=== PATIENT | female | born 1930 | race Caucasian/White ===

== ENCOUNTER → 2016-05-15 | Outpatient (CLI) | payer OTHER | END | disposition home or self-care (01) | LOC: C.LABSPEC 18:01 | PROVIDERS: ATTEND Family Medicine | DX: R31.9 Hematuria, unspecified (principal) ==

== ENCOUNTER 2017-05-07 09:26 | Emergency (ER) | payer OTHER ==
[~2017-05-07] VITALS: Ht 154.9 cm; Wt 49.0 kg
[2017-05-07 09:28] VITALS: TEMP 36.4; Ht 154.9 cm; Wt 49.0 kg
[2017-05-07 09:46] VITALS: O2SAT 95
--- NOTE | 2017-05-07 09:48 | EMERGENCY ROOM VISIT NOTE ---
History Report prepared by Keli: Paulie Sorto Under the Supervision of: Dr. Jeremiah Appiah D.O. First contact with patient: 09:31 Stated Complaint: LETHARGY History of Present Illness The patient is a 87 year old female who presents to the Emergency Room with complaints of persistent increased lethargy starting this morning. Per the nursing staff, the patient was found sitting in her chair this morning more diaphoretic than usual, and she was bradycardic in the 50s. The patient states that she is had some abdominal pain, and she notes that she has not felt sick recently. The patient has a history of dementia. Source of History: patient, nursing staff Onset: this morning Position: other (global) Quality: other (lethargy) Timing: other (persistent) Associated Symptoms: + diaphoresis, + abdominal pain Review of Systems See HPI for pertinent positives & negatives. A total of 10 systems reviewed and were otherwise negative. Past Medical & Surgical Medical Problems: (1) Dementia Social History Marital Status: other (unknown) Housing Status: assisted living Occupation Status: retired Current/Historical Medications Scheduled Cephalexin Monohydrate (Keflex), 500 MG PO QID Cyanocobalamin (Cyanocobalamin), 1 ML IM MONTHLY Diltiazem Hcl Ext Rel (Tiazac), 0.5 CAP PO DAILY Ergocalciferol (Vitamin D 33824 Unit), 50,000 UNIT PO Q2WK Ferrous Sulfate (Kp Ferrous Sulfate), 1 TAB PO DAILY Isosorbide Mononitrate Ext Rel (Imdur Ext Rel), 60 MG PO QAM Levothyroxine Sodium (Levothyroxine Sodium), 1 TAB PO DAILY Metoprolol Tartrate (Lopressor) (Lopressor), 50 MG PO BID Polyethylene Glycol 3350 (Miralax), 17 GM PO DAILY Ranitidine (Zantac), 150 MG PO BID Scheduled PRN Acetaminophen (Tylenol), 1-2 TAB PO Q4H PRN for Pain Acetaminophen (Tylenol Arthritis Ext Rel), 650 MG PO Q8H PRN for Pain Allergies Coded Allergies: Valacyclovir (Unverified Allergy, Severe, ANAPHYLAXIS, 05/07/17) Clopidogrel (Unverified Allergy, Unknown, COUGH, 05/07/17) Amlodipine (Unverified Adverse Reaction, Unknown, COUGH, 05/07/17) Atorvastatin (Unverified Adverse Reaction, Unknown, COUGH, 05/07/17) Hydrochlorothiazide (Unverified Adverse Reaction, Unknown, COUGH, 05/07/17) Lisinopril (Unverified Adverse Reaction, Unknown, COUGH, 05/07/17) Simvastatin (Unverified Adverse Reaction, Unknown, COUGH, 05/07/17) Physical Exam Vital Signs Date Time Temp Pulse Resp B/P (MAP) Pulse Ox O2 Delivery O2 Flow Rate FiO2 05/07/17 15:01 68 20 173/57 98 Room Air 05/07/17 14:00 63 20 144/53 94 Room Air 05/07/17 13:30 61 20 155/60 95 Room Air 05/07/17 12:30 68 20 159/68 95 Room Air 05/07/17 11:30 62 20 168/81 94 Room Air 05/07/17 10:36 58 20 150/70 94 Room Air 05/07/17 09:46 95 Room Air 05/07/17 09:42 70 05/07/17 09:28 36.4 55 20 146/65 95 Room Air Physical Exam GENERAL: Patient is awake, alert, non-anxious appearing, and does not appear to be in pain. EYES: The conjunctivae are clear. The pupils are round and reactive. EARS, NOSE, MOUTH AND THROAT: The nose is without any evidence of any deformity. Mucous membranes are moist tongue is midline NECK: The neck is nontender and supple. RESPIRATORY: Lung sounds diminished throughout. Rales in the left lung field. No tachypnea or conversational dyspnea. CARDIOVASCULAR: Regular rate and rhythm noted there no murmurs rubs or gallops normal S1 normal S2 GASTROINTESTINAL: The abdomen is mildly distended but soft. No tenderness, guarding or rigidity. PELVIS: The Pelvis is stable. No tenderness to palpation is noted. BACK: No midline tenderness or or step-off noted range of motion in flexion extension as well as rotation no signs of muscle spasm noted MUSCULOSKELETAL/EXTREMITIES: There is no evidence of gross deformity full range of motion is noted in the hips and shoulders SKIN: There is pedal edema bilaterally. There is no obvious evidence of any rash. There are no petechiae, pallor or cyanosis noted. NEUROLOGIC: Patient is awake and oriented to person and place but not time or situation. Medical Decision & Procedures ER Provider Diagnostic Interpretation: Radiology results as stated below per my review and radiologist interpretation: HEAD CT NONCONTRAST CT DOSE: 815.01 mGy.cm HISTORY: Altered mental status. TECHNIQUE: Multiaxial CT images of the head were performed without the use of intravenous contrast. Automated exposure control was utilized for this study. A dose lowering technique was utilized adhering to the principles of ALARA. Comparison: None. Findings: Mild mucosal thickening within the left anterior ethmoid air cells. The mastoid air cells are clear. The calvarium and skull base are intact. There is no mass, hematoma, midline shift, acute infarct. White matter hypodensity is nonspecific but suggestive of microvascular ischemic change. The ventricles and sulci demonstrate mild age-related involutional changes. 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 Impression: No acute intracranial abnormality. Atrophy and microvascular ischemic changes. Electronically signed by: John Gonzales M.D. 05/07/2017 10:32 AM Dictated Date/Time: 05/07/2017 10:21 AM CHEST ONE VIEW PORTABLE CLINICAL HISTORY: Pain, radiating to the abdomen. COMPARISON STUDY: No previous studies for comparison. FINDINGS: The heart is mildly enlarged. There are a few equivocal septal lines. There is no focal pulmonary consolidation. There are no significant pleural effusions. There is no free intraperitoneal air.[ IMPRESSION: 1. Cardiomegaly 2. No evidence of focal pulmonary consolidation 3. No evidence of free intraperitoneal air Electronically signed by: Landon Ching M.D. 05/07/2017 10:02 AM Dictated Date/Time: 05/07/2017 10:[address] SCAN OF THE ABDOMEN AND PELVIS WITHOUT CONTRAST CLINICAL HISTORY: Diffuse abdominal pain with abdominal distention COMPARISON STUDY: No previous studies for comparison. TECHNIQUE: CT scan of the abdomen and pelvis was performed from the lung bases to the proximal femurs. Images are reviewed in the axial, sagittal, and coronal planes. IV contrast was not administered for this examination. A dose lowering technique was utilized adhering to the principles of ALARA. CT DOSE: FINDINGS: Lower chest: There are by basilar atelectatic changes. There is a prominent hiatal hernia. The heart is enlarged. Liver: The unenhanced liver is normal in size, contour, and attenuation. There is no intrahepatic biliary ductal dilatation. Gallbladder: There is a large calcified gallstone. Spleen: Normal in size and attenuation. Pancreas: Unremarkable. Adrenal glands: Unremarkable. Kidneys: There is no hydronephrosis. The kidneys are lobular. There is a 12 mm right renal mass likely representing a cyst Bowel: There are no transition zones to indicate bowel obstruction. There is colonic diverticulosis. There are no acute peridiverticular inflammatory changes. There is a lipomatous ileocecal valve. There is colonic wall thickening most pronounced the level of the hepatic flexure. The findings are consistent with a nonspecific colitis. Peritoneum: There is no intraperitoneal free air or abdominal ascites. Vasculature: Atheromatous changes are present within the abdominal aorta. There is no aneurysmal dilatation. Adenopathy: None. Pelvic viscera: The uterus is surgically absent. Skeletal structures: No destructive osseous lesions are seen. IMPRESSION: 1. No evidence of bowel obstruction. No evidence of free air 2. Diverticulosis. No evidence of acute diverticulitis 3. Cholelithiasis 4. Colonic wall thickening involving the ascending and proximal transverse colon. The findings are consistent with a nonspecific colitis (infectious versus inflammatory versus ischemic) Electronically signed by: Landon Ching M.D. 05/07/2017 10:27 AM Dictated Date/Time: 05/07/2017 10:22 AM Laboratory Results 05/07/17 09:50 Red Blood Count 3.70, Mean Corpuscular Volume 92.2, Mean Corpuscular Hemoglobin 30.8, Mean Corpuscular Hemoglobin Concent 33.4, Mean Platelet Volume 9.8, Neutrophils (%) (Auto) 67.5, Lymphocytes (%) (Auto) 13.7, Monocytes (%) (Auto) 13.6, Eosinophils (%) (Auto) 4.8, Basophils (%) (Auto) 0.3, Neutrophils # (Auto ) 4.88, Lymphocytes # (Auto) 0.99, Monocytes # (Auto) 0.98, Eosinophils # (Auto ) 0.35, Basophils # (Auto) 0.02 05/07/17 09:50 Test 05/07/17 00:00 05/07/17 09:50 Urine Color YELLOW Urine Appearance CLOUDY (CLEAR) Urine pH 6.0 (4.5-7.5) Urine Specific [place] 1.014 (1.000-1.030) Urine Protein NEG (NEG) Urine Glucose (UA) NEG (NEG) Urine Ketones NEG (NEG) Urine Occult Blood NEG (NEG) Urine Nitrite NEG (NEG) Urine Bilirubin NEG (NEG) Urine Urobilinogen NEG (NEG) Urine Leukocyte Esterase LARGE (NEG) Urine WBC (Auto) >30 /hpf (0-5) Urine RBC (Auto) 0-4 /hpf (0-4) Urine Hyaline Casts (Auto) 1-5 /lpf (0-5) Urine Epithelial Cells (Auto) >30 /lpf (0-5) Urine Bacteria (Auto) 2+ (NEG) White Blood Count 7.23 K/uL (4.8-10.8) Red Blood Count 3.70 M/uL (4.2-5.4) Hemoglobin 11.4 g/dL (12.0-16.0) Hematocrit 34.1 % (37-47) Mean Corpuscular Volume 92.2 fL (80-100) Mean Corpuscular Hemoglobin 30.8 pg (25-34) Mean Corpuscular Hemoglobin Concent 33.4 g/dl (32-36) Platelet Count 137 K/uL (130-400) Mean Platelet Volume 9.8 fL (7.4-10.4) Neutrophils (%) (Auto) 67.5 % Lymphocytes (%) (Auto) 13.7 % Monocytes (%) (Auto) 13.6 % Eosinophils (%) (Auto) 4.8 % Basophils (%) (Auto) 0.3 % Neutrophils # (Auto) 4.88 K/uL (1.4-6.5) Lymphocytes # (Auto) 0.99 K/uL (1.2-3.4) Monocytes # (Auto) 0.98 K/uL (0.11-0.59) Eosinophils # (Auto) 0.35 K/uL (0-0.5) Basophils # (Auto) 0.02 K/uL (0-0.2) RDW Standard Deviation 44.1 fL (36.4-46.3) RDW Coefficient of Variation 13.1 % (11.5-14.5) Immature Granulocyte % (Auto) 0.1 % Immature Granulocyte # (Auto) 0.01 K/uL (0.00-0.02) Prothrombin Time 10.6 SECONDS (9.0-12.0) Prothromb Time International Ratio 1.0 (0.9-1.1) Activated Partial Thromboplast Time 24.0 SECONDS (21.0-31.0) Partial Thromboplastin Ratio 0.9 Anion Gap 6.0 mmol/L (3-11) Est Creatinine Clear Calc Drug Dose 18.3 ml/min Estimated GFR () 33.5 Estimated GFR (Non- 28.9 BUN/Creatinine Ratio 15.5 (10-20) Calcium Level 8.8 mg/dl (8.5-10.1) Total Bilirubin 0.5 mg/dl (0.2-1) Direct Bilirubin 0.1 mg/dl (0-0.2) Aspartate Amino Transf (AST/SGOT) 19 U/L (15-37) Alanine Aminotransferase (ALT/SGPT) 17 U/L (12-78) Alkaline Phosphatase 63 U/L (45-117) Total Creatine Kinase 67 U/L (26-192) Creatine Kinase MB 2.2 ng/ml (0.5-3.6) Creatine Kinase MB Ratio 3.3 (0-3.0) Troponin I < 0.015 ng/ml (0-0.045) Total Protein 6.4 gm/dl (6.4-8.2) Albumin 3.4 gm/dl (3.4-5.0) Lipase 419 U/L (73-393) Laboratory results per my review. Medications Administered Medications (Trade) Dose Ordered Sig/Cheryle Route Start Time Stop Time Status Last Admin Dose Admin Ceftriaxone Sodium (Rocephin Inj) 1 gm NOW STAT IV 05/07/17 11:02 05/07/17 11:03 DC 05/07/17 11:14 1 GM ECG Indication: weakness Rate (beats per minute): 52 Rhythm: sinus bradycardia Findings: 1st degree AV block, no ectopy, other (LVH by voltage criteria) Comparison ECG Date: no prior available ED Course 0931: The patient was evaluated in room A11. A complete history and physical examination were performed. 1000: I reevaluated the patient, and I talked with her daughter as well. 1102: Rocephin 1gm IV 1252: Upon reevaluation, the patient is doing well. I discussed the results and treatment plan with her and her daughter. They verbalized agreement of the treatment plan. She was discharged home. Medical Decision Differential diagnosis: Etiologies such as metabolic, infection, hypo/hyperglycemia, electrolyte abnormalities, cardiac sources, intracerebral event, toxicologic, neurologic, as well as others were entertained. Nursing notes reviewed. Additional history is obtained from the patient's family member. The patient is an 87-year-old female who presented to the emergency department from her personal alf for an evaluation. The patient's presentation was somewhat confusing. She had some sort of episode at her personal alf where she appeared to be altered in her mental status. She was also reportedly diaphoretic. The patient appeared to be at her baseline according to her daughter. She did have a shuffling gait and appeared overall week. I discussed patient's laboratory and radiographic studies with her daughter. The patient was treated with IV antibiotics for presumed urinary tract infection. I recommended that they continue all medications as prescribed. I discussed the case with the emergency Department disease case manager rn. They were able to call the patient's personal alf to ensure that they were able to care for her and she was discharged back to that facility at a higher level of care. She was encouraged to return to the emergency department immediately if symptoms change worsen or the need arises. Medication Reconcilliation Current Medication List: was personally reviewed by me Blood Pressure Screening Patient's blood pressure: Elevated blood pressure Blood pressure disposition: Elevated BP felt to be situational Impression Primary Impression: Weakness Additional Impression: UTI (urinary tract infection) Scribe Attestation The scribe's documentation has been prepared under my direction and personally reviewed by me in its entirety. I confirm that the note above accurately reflects all work, treatment, procedures, and medical decision making performed by me. Departure Information Dispostion Home / Self-Care Prescriptions Cephalexin Monohydrate (KEFLEX) 500 Mg Cap 500 MG PO QID, #28 CAP Prov: Jeremiah Appiah, 05/07/17 Referrals No Doctor, Assigned (PCP) Forms HOME CARE DOCUMENTATION FORM, IMPORTANT VISIT INFORMATION, WORK / SCHOOL INSTRUCTIONS Patient Instructions ED Weakness ALFONZO, My [facility], Urinary Tract Infecs Women Additional Instructions Continue all medications as prescribed. Follow-up with your family this week for reevaluation. Return to the emergency department immediately if symptoms change worsen or need arises. Problem Qualifiers Additional Impression: UTI (urinary tract infection) Urinary tract infection type: site unspecified Hematuria presence: without hematuria Qualified Codes: N39.0 - Urinary tract infection, site not specified
--- NOTE | 2017-05-07 10:04 | DIAGNOSTIC IMAGING REPORT ---
CHEST ONE VIEW PORTABLE CLINICAL HISTORY: Pain, radiating to the abdomen. COMPARISON STUDY: No previous studies for comparison. FINDINGS: The heart is mildly enlarged. There are a few equivocal septal lines. There is no focal pulmonary consolidation. There are no significant pleural effusions. There is no free intraperitoneal air.[ IMPRESSION: 1. Cardiomegaly 2. No evidence of focal pulmonary consolidation 3. No evidence of free intraperitoneal air Electronically signed by: Landon Ching M.D. 05/07/2017 10:02 AM Dictated Date/Time: 05/07/2017 10:02 AM
[2017-05-07 10:11] LABS: BASO % 0.3 %; BASO ABS # 0.02 K/uL (0-0.2); EOS % 4.8 %; EOS ABS # 0.35 K/uL (0-0.5); HEMATOCRIT 34.1 % (37-47); HEMOGLOBIN 11.4 g/dL (12.0-16.0); IG# 0.01 K/uL (0.00-0.02); LYMPH % 13.7 %; LYMPH ABS # 0.99 K/uL (1.2-3.4); MEAN CELL VOLUME 92.2 fL (80-100); MEAN CORPUSCULAR HEMOGLOBIN 30.8 pg (25-34); MEAN CORPUSCULAR HGB CONC 33.4 g/dl (32-36); MEAN PLATELET VOLUME 9.8 fL (7.4-10.4); MONO % 13.6 %; MONO ABS # 0.98 K/uL (0.11-0.59); NEUT % 67.5 %; NEUT ABS # 4.88 K/uL (1.4-6.5); PLATELET COUNT 137 K/uL (130-400); RED CELL DISTRIBUTION WIDTH CV 13.1 % (11.5-14.5); RED CELL DISTRIBUTION WIDTH SD 44.1 fL (36.4-46.3); WHITE BLOOD COUNT 7.23 K/uL (4.8-10.8)
[2017-05-07] MEDS ORDERED: ACET1TAB84 PO (10:16)
[2017-05-07] MEDS ORDERED: LEVO50TA6 PO (10:16)
[2017-05-07] MEDS ORDERED: METO50TA16 PO (10:16)
[2017-05-07] MEDS ORDERED: CYNI1000 IM (10:16)
[2017-05-07] MEDS ORDERED: ZNTT/150 PO (10:16)
[2017-05-07] MEDS ORDERED: ACET-1311 PO (10:16)
[2017-05-07] MEDS ORDERED: ERGO500037 PO (10:16)
[2017-05-07] MEDS ORDERED: FERR1TAB13 PO (10:16)
[2017-05-07] MEDS ORDERED: DILT120C68 PO (10:16)
[2017-05-07] MEDS ORDERED: POLY335019 PO (10:16)
[2017-05-07] MEDS ORDERED: ISOS60TA25 PO (10:16)
[2017-05-07 10:30] LABS: ALBUMIN 3.4 gm/dl (3.4-5.0); ALT/SGPT 17 U/L (12-78); AST/SGOT 19 U/L (15-37); BLOOD UREA NITROGEN 24 mg/dl (7-18); CALCIUM 8.8 mg/dl (8.5-10.1); CARBON DIOXIDE 27 mmol/L (21-32); CREATININE 1.57 mg/dl (0.60-1.20); GLUCOSE 107 mg/dl (70-99); LIPASE 419 U/L (73-393); POTASSIUM 3.9 mmol/L (3.5-5.1); SODIUM 130 mmol/L (136-145)
[2017-05-07 10:36] LABS: ALKALINE PHOSPHATASE 63 U/L (45-117); CKMB 2.2 ng/ml (0.5-3.6); TOTAL PROTEIN 6.4 gm/dl (6.4-8.2)
--- NOTE | 2017-05-07 10:44 | DIAGNOSTIC IMAGING REPORT ---
CT SCAN OF THE ABDOMEN AND PELVIS WITHOUT CONTRAST CLINICAL HISTORY: Diffuse abdominal pain with abdominal distention COMPARISON STUDY: No previous studies for comparison. TECHNIQUE: CT scan of the abdomen and pelvis was performed from the lung bases to the proximal femurs. Images are reviewed in the axial, sagittal, and coronal planes. IV contrast was not administered for this examination. A dose lowering technique was utilized adhering to the principles of ALARA. CT DOSE: FINDINGS: Lower chest: There are by basilar atelectatic changes. There is a prominent hiatal hernia. The heart is enlarged. Liver: The unenhanced liver is normal in size, contour, and attenuation. There is no intrahepatic biliary ductal dilatation. Gallbladder: There is a large calcified gallstone. Spleen: Normal in size and attenuation. Pancreas: Unremarkable. Adrenal glands: Unremarkable. Kidneys: There is no hydronephrosis. The kidneys are lobular. There is a 12 mm right renal mass likely representing a cyst Bowel: There are no transition zones to indicate bowel obstruction. There is colonic diverticulosis. There are no acute peridiverticular inflammatory changes. There is a lipomatous ileocecal valve. There is colonic wall thickening most pronounced the level of the hepatic flexure. The findings are consistent with a nonspecific colitis. Peritoneum: There is no intraperitoneal free air or abdominal ascites. Vasculature: Atheromatous changes are present within the abdominal aorta. There is no aneurysmal dilatation. Adenopathy: None. Pelvic viscera: The uterus is surgically absent. Skeletal structures: No destructive osseous lesions are seen. IMPRESSION: 1. No evidence of bowel obstruction. No evidence of free air 2. Diverticulosis. No evidence of acute diverticulitis 3. Cholelithiasis 4. Colonic wall thickening involving the ascending and proximal transverse colon. The findings are consistent with a nonspecific colitis (infectious versus inflammatory versus ischemic) Electronically signed by: Landon Ching M.D. 05/07/2017 10:27 AM Dictated Date/Time: 05/07/2017 10:22 AM
--- NOTE | 2017-05-07 10:44 | DIAGNOSTIC IMAGING REPORT ---
HEAD CT NONCONTRAST CT DOSE: 815.01 mGy.cm HISTORY: Altered mental status. TECHNIQUE: Multiaxial CT images of the head were performed without the use of intravenous contrast. Automated exposure control was utilized for this study. A dose lowering technique was utilized adhering to the principles of ALARA. Comparison: None. Findings: Mild mucosal thickening within the left anterior ethmoid air cells. The mastoid air cells are clear. The calvarium and skull base are intact. There is no mass, hematoma, midline shift, acute infarct. White matter hypodensity is nonspecific but suggestive of microvascular ischemic change. The ventricles and sulci demonstrate mild age-related involutional changes. 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 Impression: No acute intracranial abnormality. Atrophy and microvascular ischemic changes. Electronically signed by: John Gonzales M.D. 05/07/2017 10:32 AM Dictated Date/Time: 05/07/2017 10:21 AM
[2017-05-07] MEDS ORDERED: CEFTRIAXONE SOD INJ 1 GM ADDVIAL IV STA (11:02)
[2017-05-07] MEDS ORDERED: CEPH500C2 PO (13:12)
[2017-05-07 15:01] VITALS: BP 173/57; PULSE 68; O2SAT 98
== END 2017-05-07 15:10 | disposition home or self-care (01) ==
LOC: EDBD 09:26 → C.EDA 09:29
DX: R53.1 Weakness (principal); N39.0 Urinary tract infection, site not specified; R03.0 Elevated blood-pressure reading, without diagnosis of hypertension; R00.1 Bradycardia, unspecified; R61 Generalized hyperhidrosis; F03.90 Unspecified dementia, unspecified severity, without behavioral disturbance, psychotic disturbance, mood disturbance, and anxiety

== ENCOUNTER 2017-08-02 10:42 | Emergency (ER) | payer OTHER ==
[~2017-08-02] VITALS: Ht 152.4 cm; Wt 45.0 kg
[~2017-08-02 10:42] MED LIST: ACET-1311 PO; ACET1TAB84 PO; CEPH500C2 PO; CYNI1000 IM; DILT120C68 PO; ERGO500037 PO; FERR1TAB13 PO; ISOS60TA25 PO; LEVO50TA6 PO; METO50TA16 PO; POLY335019 PO; RANI150T85 PO
[2017-08-02 10:51] VITALS: TEMP 36.8; Ht 152.4 cm; Wt 45.0 kg
[2017-08-02 10:57] VITALS: O2SAT 94
[2017-08-02] MEDS ORDERED: [UNRECOGNIZED DRUG - CODE] TOP (10:58)
[2017-08-02] MEDS ORDERED: DICL1GEL12 TD (11:00)
[2017-08-02] MEDS ORDERED: LIDO1CRE16 TOP (11:00)
[2017-08-02] MEDS ORDERED: NUTR-706 PO (11:05)
[2017-08-02] MEDS ORDERED: FURO-85 PO (11:08)
[2017-08-02] MEDS ORDERED: TRAM-10 PO (11:12)
[2017-08-02] MEDS ORDERED: CYAN100020 PO (11:12)
[2017-08-02] MEDS ORDERED: CHOL2000 PO (11:13)
[2017-08-02 11:30] LABS: BASO % 0.2 %; BASO ABS # 0.01 K/uL (0-0.2); EOS % 3.6 %; EOS ABS # 0.24 K/uL (0-0.5); HEMOGLOBIN 11.8 g/dL (12.0-16.0); IG# 0.01 K/uL (0.00-0.02); LYMPH % 18.2 %; LYMPH ABS # 1.21 K/uL (1.2-3.4); MEAN CELL VOLUME 92.6 fL (80-100); MEAN CORPUSCULAR HEMOGLOBIN 31.2 pg (25-34); MEAN CORPUSCULAR HGB CONC 33.7 g/dl (32-36); MEAN PLATELET VOLUME 9.9 fL (7.4-10.4); MONO % 9.3 %; MONO ABS # 0.62 K/uL (0.11-0.59); NEUT % 68.5 %; NEUT ABS # 4.57 K/uL (1.4-6.5); PLATELET COUNT 162 K/uL (130-400); RED CELL DISTRIBUTION WIDTH CV 12.6 % (11.5-14.5); RED CELL DISTRIBUTION WIDTH SD 43.1 fL (36.4-46.3); WHITE BLOOD COUNT 6.66 K/uL (4.8-10.8)
[2017-08-02 11:47] LABS: BLOOD UREA NITROGEN 25 mg/dl (7-18); CALCIUM 9.2 mg/dl (8.5-10.1); CARBON DIOXIDE 29 mmol/L (21-32); CREATININE 1.51 mg/dl (0.60-1.20); GLUCOSE 127 mg/dl (70-99); POTASSIUM 4.3 mmol/L (3.5-5.1); SODIUM 135 mmol/L (136-145)
--- NOTE | 2017-08-02 11:48 | DIAGNOSTIC IMAGING REPORT ---
CT HEAD WITHOUT CONTRAST (CT) CLINICAL HISTORY: Head trauma. Scalp hematoma. COMPARISON STUDY: May 07, 2017 TECHNIQUE: Axial CT of the brain is performed from the vertex to the skull base. IV contrast was not administered for this examination. A dose lowering technique was utilized adhering to the principles of ALARA. CT DOSE: 537.48 mGy.cm FINDINGS: No intra or extra-axial mass lesions are visualized. There is no CT evidence of acute cortical infarction. There is no evidence of midline shift. There is no acute hemorrhage. No calvarial fractures are visualized. There are patchy white matter hypodensities likely on a small vessel basis. There is an old small left parietal lobe infarct. There is no evidence of pathologic ventricular dilatation. There is no evidence of acute sinusitis. There is a right posterior scalp hematoma. IMPRESSION: Right posterior parietal scalp hematoma. No acute intracranial findings. Electronically signed by: Landon Ching M.D. 08/02/2017 11:47 AM Dictated Date/Time: 08/02/2017 11:45 AM
[2017-08-02 11:52] LABS: CKMB 1.6 ng/ml (0.5-3.6)
--- NOTE | 2017-08-02 12:15 | EMERGENCY ROOM VISIT NOTE ---
ED Visit Note First contact with patient: 10:48 The patient was seen and examined with John Del Toro PA-C. I agree with the history, physical and findings. Please see the note for disposition and details.
[2017-08-02 13:02] VITALS: BP 187/71; PULSE 74; O2SAT 95
--- NOTE | 2017-08-07 17:24 | EMERGENCY ROOM VISIT NOTE ---
History First contact with patient: 10:48 Chief Complaint: FALL Stated Complaint: FALL/ HEMATOMA History of Present Illness The patient is a 87 year old white female who presents to the Emergency Room with complaints of a bump on her posterior head. Patient resides at the dementia unit at the [facility]. She had an unwitnessed fall. Her only complaint is of a bump on the back of her head. There was no loss of consciousness as far as I am aware. Patient is demented and is an unreliable historian. She denies any chest pain, shortness breath, nausea, vomiting, headache, or change in vision, speech, or hearing. No hip pain. She arrives by BLS ambulance. No other complaints. Review of Systems REVIEW OF SYSTEM: HEENT: No dizziness, visual problems, or tinnitus. There is no difficulty swallowing and no oral lesions are present. LYMPH: No adenopathy. PULMONARY: No cough, shortness of breath, sputum production or hemoptysis. CARDIOVASCULAR: No chest pain, palpitations, shortness of breath or peripheral edema. GASTROINTESTINAL: No diarrhea, constipation, nausea, vomiting, or abdominal pain. GENITOURINARY: No dysuria, frequency, urgency or nocturia. NEUROLOGIC: No weakness, muscle tenderness, epilepsy or history of neurological problems. MUSCULOSKELETAL: No history of joint tenderness/swelling. Positive history of arthritis and arthralgias. SKIN: No rashes or lesions. PSYCHIATRIC: Positive history of dementia. ENDOCRINE: No history of diabetes, or abnormal hair growth. Past Medical/Surgical History Medical Problems: (1) Dementia Hypertension, heart disease, hypothyroidism, GERD, osteoarthritis. Family History Noncontributory. Parents are . Social History Smoking Status: Never Smoker Smokeless Tobacco Use: No Alcohol Use: none Drug Use: none Marital Status: other Housing Status: assisted living Occupation Status: retired Current/Historical Medications Scheduled Cholecalciferol (Vitamin D3), 1 CAP PO DAILY Cyanocobalamin (Vitamin B12), 1 TAB PO DAILY Diltiazem Hcl Ext Rel (Tiazac), 0.5 CAP PO DAILY Enteral Nutrition Formula (Ensure), 1 CAN PO BID Isosorbide Mononitrate Ext Rel (Imdur Ext Rel), 60 MG PO QAM Levothyroxine Sodium (Levothyroxine Sodium), 1 TAB PO DAILY Metoprolol Tartrate (Lopressor) (Lopressor), 50 MG PO BID Ranitidine (Zantac), 150 MG PO BID Scheduled PRN Acetaminophen (Tylenol), 1-2 TAB PO Q4H PRN for Pain Acetaminophen (Tylenol Arthritis Ext Rel), 650 MG PO Q8H PRN for Pain Diclofenac Sodium (Topical) (Voltaren 1% Top Gel), 4 GM TD QID PRN for lumbar pain Docosanol (Abreva), 1 APPLN TOP UD PRN for cold sores Furosemide (Lasix), 1 TAB PO DAILY PRN for edema Lidocaine-Prilocaine (Lidocaine/Prilocaine), 1 APPLN TOP UD PRN for Lumbar pain Tramadol (Ultram), 25-50 MG PO Q4H PRN for Pain Allergies Coded Allergies: Valacyclovir (Unverified Allergy, Severe, ANAPHYLAXIS, 08/02/17) Clopidogrel (Unverified Allergy, Unknown, COUGH, 08/02/17) Amlodipine (Unverified Adverse Reaction, Unknown, COUGH, 08/02/17) Atorvastatin (Unverified Adverse Reaction, Unknown, COUGH, 08/02/17) Hydrochlorothiazide (Unverified Adverse Reaction, Unknown, COUGH, 08/02/17) Lisinopril (Unverified Adverse Reaction, Unknown, COUGH, 08/02/17) Simvastatin (Unverified Adverse Reaction, Unknown, COUGH, 08/02/17) Physical Exam Vital Signs Date Time Temp Pulse Resp B/P (MAP) Pulse Ox O2 Delivery O2 Flow Rate FiO2 08/02/17 13:02 74 187/71 95 08/02/17 12:00 56 18 177/92 96 Room Air 08/02/17 11:29 59 18 175/72 96 Room Air 08/02/17 11:13 62 08/02/17 10:57 94 Room Air 08/02/17 10:51 36.8 69 18 203/74 94 Room Air Physical Exam General: Well-developed, well-nourished, elderly white female, in no acute distress. Laying on the bed. Alert and pleasantly confused. Skin: Warm and dry with fair turgor. No rashes. No ecchymosis or erythema. She has an edematous area on her posterior scalp. It is approximately 4 cm in diameter. No laceration. There is nothing to close. The area is tender to touch. The patient is not diaphoretic. No abrasions. HEENT: Normocephalic. Eyes PERRLA, EOMI. No conjunctiva or scleral injection. Ears TMs intact bilaterally with good light reflexes. No erythema or bulging. No hemotympanum. Canals are patent. Cerumen is present. Nares patent bilaterally without turbinate enlargement. No significant drainage. No epistaxis. Oropharynx without erythema or exudate. Uvula midline, oral mucosa moist. No lesions present. Heart: Heart RRR. No GR. Soft murmur is noted. Peripheral pulses are 2+. Lungs: Lungs are clear to auscultation. No crackles rhonchi or wheezing. Good air movement. The patient is able to take a deep breath. Abdomen: Abdomen was inspected, auscultated, and palpated. Bowel sounds present x 4. Soft, nontender to palpation. No hepato-splenomegaly. No masses noted. No CVA tenderness. Musculoskeletal: Gross motor function of the upper and lower extremities is intact and unremarkable. No pain with motion of the shoulders, elbows, or wrists. No pain with motion of the hips, knees, or ankles. There is no shortening of the lower extremities. Neurologic: Gross sensation is intact across the upper and lower extremities by soft touch. Cranial nerves II through XII are intact. Medical Decision & Procedures ER Provider Diagnostic Interpretation: EKG obtained today was reviewed by me and addressed with Dr. Skinner. It shows sinus bradycardia with a rate of 56. Left ventricular hypertrophy. No acute ST or T-wave changes. Nonspecific T-wave abnormality is present. No change from EKG of May 07, 2017. CT scan imaging obtained today of the head was reviewed by me and read by radiology. Right posterior parietal scalp hematoma is noted. No other acute findings. No intracranial bleed or fracture. Laboratory Results 08/02/17 11:18 Red Blood Count 3.78, Mean Corpuscular Volume 92.6, Mean Corpuscular Hemoglobin 31.2, Mean Corpuscular Hemoglobin Concent 33.7, Mean Platelet Volume 9.9, Neutrophils (%) (Auto) 68.5, Lymphocytes (%) (Auto) 18.2, Monocytes (%) (Auto) 9.3, Eosinophils (%) (Auto) 3.6, Basophils (%) (Auto) 0.2, Neutrophils # (Auto) 4.57, Lymphocytes # (Auto) 1.21, Monocytes # (Auto) 0.62, Eosinophils # (Auto) 0.24, Basophils # (Auto) 0.01 08/02/17 11:18 Test 08/02/17 11:18 White Blood Count 6.66 K/uL (4.8-10.8) Red Blood Count 3.78 M/uL (4.2-5.4) Hemoglobin 11.8 g/dL (12.0-16.0) Hematocrit 35.0 % (37-47) Mean Corpuscular Volume 92.6 fL (80-100) Mean Corpuscular Hemoglobin 31.2 pg (25-34) Mean Corpuscular Hemoglobin Concent 33.7 g/dl (32-36) Platelet Count 162 K/uL (130-400) Mean Platelet Volume 9.9 fL (7.4-10.4) Neutrophils (%) (Auto) 68.5 % Lymphocytes (%) (Auto) 18.2 % Monocytes (%) (Auto) 9.3 % Eosinophils (%) (Auto) 3.6 % Basophils (%) (Auto) 0.2 % Neutrophils # (Auto) 4.57 K/uL (1.4-6.5) Lymphocytes # (Auto) 1.21 K/uL (1.2-3.4) Monocytes # (Auto) 0.62 K/uL (0.11-0.59) Eosinophils # (Auto) 0.24 K/uL (0-0.5) Basophils # (Auto) 0.01 K/uL (0-0.2) RDW Standard Deviation 43.1 fL (36.4-46.3) RDW Coefficient of Variation 12.6 % (11.5-14.5) Immature Granulocyte % (Auto) 0.2 % Immature Granulocyte # (Auto) 0.01 K/uL (0.00-0.02) Anion Gap 5.0 mmol/L (3-11) Est Creatinine Clear Calc Drug Dose 17.9 ml/min Estimated GFR () 35.1 Estimated GFR (Non- 30.3 BUN/Creatinine Ratio 16.4 (10-20) Calcium Level 9.2 mg/dl (8.5-10.1) Total Creatine Kinase 39 U/L (26-192) Creatine Kinase MB 1.6 ng/ml (0.5-3.6) Creatine Kinase MB Ratio 4.1 (0-3.0) Troponin I < 0.015 ng/ml (0-0.045) CBC, PRP, CK/CK-MB, and troponin were obtained. They are unremarkable. Mild renal insufficiency. Troponin is normal at less than 0.015. ED Course Patient was educated regarding today's findings. Conservative care measures were discussed. She may apply cool compresses to the scalp to help reduce her swelling. This may also improve comfort. Tylenol every 6 hours as needed for discomfort. Follow-up with her PCP as needed. Return to the ED for any acute changes. Instructions were also relayed to her family member. Soft tissue contusion handout was provided. Patient was seen in conjunction with Dr. Skinner, who also evaluated the patient and concurred with today's diagnosis and treatment plan. Medical Decision Possibility of skull fracture, intracranial bleed, laceration, cervical spine injury, ACS, acute OK, vertigo, and long bone fracture were considered among others. Impression Primary Impression: Fall at halfway Additional Impression: Head contusion Departure Information Dispostion Home / Self-Care Condition GOOD Forms HOME CARE DOCUMENTATION FORM, TYLENOL USE, IMPORTANT VISIT INFORMATION Patient Instructions [facility], ED Contusion Soft Tissue Additional Instructions Cool compresses to the scalp as needed for swelling/discomfort Tylenol every 6 hours as needed for pain control Follow-up with her PCP as needed Return to the ED for any other concerns Problem Qualifiers Primary Impression: Fall at halfway Encounter type: initial encounter Qualified Codes: W19.XXXA - Unspecified fall, initial encounter; Y92.129 - Unspecified place in halfway as the place of occurrence of the external cause Additional Impression: Head contusion Encounter type: initial encounter Contusion of head detail: scalp Qualified Codes: S00.03XA - Contusion of scalp, initial encounter
== END 2017-08-02 13:04 | disposition home or self-care (01) ==
LOC: EDBD 10:42 → C.EDC 10:44
DX: S00.83XA Contusion of other part of head, initial encounter (principal); Y92.128 Other place in nursing home as the place of occurrence of the external cause; F03.90 Unspecified dementia, unspecified severity, without behavioral disturbance, psychotic disturbance, mood disturbance, and anxiety; E03.9 Hypothyroidism, unspecified; I10 Essential (primary) hypertension; K21.9 Gastro-esophageal reflux disease without esophagitis; I51.9 Heart disease, unspecified; W19.XXXA Unspecified fall, initial encounter

== ENCOUNTER 2017-11-09 10:12 | Inpatient (IN) | payer OTHER ==
[~2017-11-09] VITALS: Ht 157.5 cm; Wt 47.8 kg
[~2017-11-09 10:12] MED LIST changes: +ASPI-461 PO; -CEPH500C2 PO; +CHOL2000 PO; +CIPR-255 PO; +CYAN100020 PO; -CYNI1000 IM; +DICL1GEL12 TD; -DILT120C68 PO; -ERGO500037 PO; -FERR1TAB13 PO; +FURO-85 PO; +LIDO1CRE16 TOP; +MIRT15TA2 PO; +NUTR-706 PO; -POLY335019 PO; +PRVC40 PO; +PSEU60TA80 PO; +SODIUM CHLORIDE 0.9% 1000ML 1,000 ML IV SCH; +TRAM-10 PO; +[UNRECOGNIZED DRUG - CODE] TOP
[2017-11-09] MEDS ORDERED: PATIENT'S HEIGHT AND/OR WEIGHT NEEDED SCH (10:30)
--- NOTE | 2017-11-09 10:31 | DIAGNOSTIC IMAGING REPORT ---
HEAD CT NONCONTRAST CT DOSE: 537.48 mGy.cm HISTORY: Stroke symptoms. TECHNIQUE: Multiaxial CT images of the head were performed without the use of intravenous contrast. Automated exposure control was utilized for this study. A dose lowering technique was utilized adhering to the principles of ALARA. Comparison: Brain MRI and head CT 10/18/2017. Findings: Mild motion artifact. The paranasal sinuses and mastoid air cells are clear. The calvarium and skull base are intact. There is no mass, hematoma, midline shift, acute infarct. White matter hypodensity is nonspecific but suggestive of microvascular ischemic change. The ventricles and sulci demonstrate mild age-related involutional changes. Old lacunar infarcts seen within the left basal ganglia. Impression: Mild motion artifact. No definite acute intracranial abnormality. Electronically signed by: John Gonzales M.D. 11/09/2017 10:29 AM Dictated Date/Time: 11/09/2017 10:19 AM
[2017-11-09 10:41] LABS: BASO % 0.4 %; BASO ABS # 0.02 K/uL (0-0.2); EOS % 8.7 %; EOS ABS # 0.45 K/uL (0-0.5); HEMOGLOBIN 12.5 g/dL (12.0-16.0); IG# 0.01 K/uL (0.00-0.02); LYMPH % 23.8 %; LYMPH ABS # 1.24 K/uL (1.2-3.4); MEAN CELL VOLUME 91.8 fL (80-100); MEAN CORPUSCULAR HGB CONC 33.8 g/dl (32-36); MEAN PLATELET VOLUME 10.4 fL (7.4-10.4); MONO ABS # 0.57 K/uL (0.11-0.59); NEUT % 55.9 %; NEUT ABS # 2.91 K/uL (1.4-6.5); PLATELET COUNT 147 K/uL (130-400); RED CELL DISTRIBUTION WIDTH CV 12.2 % (11.5-14.5); RED CELL DISTRIBUTION WIDTH SD 41.7 fL (36.4-46.3)
--- NOTE | 2017-11-09 10:47 | DIAGNOSTIC IMAGING REPORT ---
CHEST ONE VIEW PORTABLE CLINICAL HISTORY: Stroke. COMPARISON STUDY: Chest radiograph October 28, 2017. FINDINGS: There is no pneumothorax or pleural effusion. There is no consolidation or evidence for pulmonary edema. Mild left basilar opacity favors atelectasis. A moderate sized hiatal hernia is noted. Cardiomediastinal silhouette is stable. Appearance of the chest is unchanged. Surgical clips within the neck are noted. IMPRESSION: No acute cardiopulmonary findings. No change in appearance of the chest. Electronically signed by: Kunal Staley M.D. 11/09/2017 10:46 AM Dictated Date/Time: 11/09/2017 10:46 AM
[2017-11-09 10:49] LABS: PTT PATIENT 25.4 SECONDS (21.0-31.0)
[2017-11-09] MEDS ORDERED: NITR-5 PO (11:09)
[2017-11-09 11:11] LABS: BLOOD UREA NITROGEN 31 mg/dl (7-18); CARBON DIOXIDE 25 mmol/L (21-32); CKMB 2.3 ng/ml (0.5-3.6); CREATININE 1.44 mg/dl (0.60-1.20); GLUCOSE 109 mg/dl (70-99); SODIUM 133 mmol/L (136-145)
[2017-11-09] MEDS ORDERED: ACETAMINOPHEN 325 MG TAB PO PRN (12:15)
[2017-11-09] MEDS ORDERED: ONDANSETRON INJ 2 MG/ML 2 ML VIAL IV PRN (12:15)
--- NOTE | 2017-11-09 12:20 | EMERGENCY ROOM VISIT NOTE ---
History Report prepared by Keli: Jada Peterson Under the Supervision of: Dr. Jeremiah Appiah D.O. First contact with patient: 10:04 Stated Complaint: STROKE SYMPTOMS History of Present Illness The patient is an 87 year old female who presents to the Emergency Room with complaints of an episode of stroke symptoms starting 1.5 hours ago. Per EMS, the patient walked down to breakfast on her own with her walker and was fine. They state that the patient had difficulty eating breakfast and walking back on her own, even with her walker. They state at this time her difficulty with speech became apparent. They report that the patient has right sided weakness. The patient denies a headache. Source of History: patient, EMS Onset: 1.5 hours ago Position: head Quality: other (stroke) Timing: other (episode) Associated Symptoms: + weakness, No headache Note: The patient complains of difficulty speaking. Review of Systems See HPI for pertinent positives & negatives. A total of 10 systems reviewed and were otherwise negative. Past Medical & Surgical Medical Problems: (1) CVA (cerebral vascular accident) (2) Dementia (3) Depression (4) GERD (gastroesophageal reflux disease) (5) HTN (hypertension) (6) Hypothyroid (7) Myocardial infarct, old Surgical Problems: (1) H/O carotid endarterectomy (2) History of appendectomy Family History FH: breast cancer SISTER Social History Smoking Status: Unknown if Ever Smoked Alcohol Use: none Drug Use: none Marital Status: Housing Status: assisted living Occupation Status: retired Current/Historical Medications Scheduled Aspirin (Aspirin), 81 MG PO QAM Cholecalciferol (Vitamin D3), 1 CAP PO DAILY Cyanocobalamin (Vitamin B12), 1 TAB PO DAILY Enteral Nutrition Formula (Ensure), 1 CAN PO BID Isosorbide Mononitrate Ext Rel (Imdur Ext Rel), 60 MG PO QAM Levothyroxine Sodium (Levothyroxine Sodium), 1 TAB PO DAILY Metoprolol Tartrate (Lopressor) (Lopressor), 50 MG PO BID Mirtazapine Soltab (Remeron Soltab), 7.5 MG PO HS Nitrofurantoin Monohyd Macrocr (Macrobid), 100 MG PO BID Pravastatin Sod (Pravastatin Sodium), 40 MG PO PM Pseudoephedrine-Guaifenesin (Mucinex D), 1 TAB PO Q12 Ranitidine (Zantac), 150 MG PO BID Scheduled PRN Acetaminophen (Tylenol), 1-2 TAB PO Q4H PRN for Pain Acetaminophen (Tylenol Arthritis Ext Rel), 650 MG PO Q8H PRN for Pain Diclofenac Sodium (Topical) (Voltaren 1% Top Gel), 4 GM TD QID PRN for lumbar pain Docosanol (Abreva), 1 APPLN TOP UD PRN for cold sores Furosemide (Lasix), 1 TAB PO DAILY PRN for edema Lidocaine-Prilocaine (Lidocaine/Prilocaine), 1 APPLN TOP UD PRN for Lumbar pain Tramadol (Ultram), 25-50 MG PO Q4H PRN for Pain Allergies Coded Allergies: Valacyclovir (Unverified Allergy, Severe, ANAPHYLAXIS, 11/09/17) Clopidogrel (Unverified Allergy, Unknown, COUGH, 11/09/17) Amlodipine (Unverified Adverse Reaction, Unknown, COUGH, 11/09/17) Atorvastatin (Unverified Adverse Reaction, Unknown, COUGH, 11/09/17) Hydrochlorothiazide (Unverified Adverse Reaction, Unknown, COUGH, 11/09/17) Lisinopril (Unverified Adverse Reaction, Unknown, COUGH, 11/09/17) Simvastatin (Unverified Adverse Reaction, Unknown, COUGH, 11/09/17) Physical Exam Vital Signs Date Time Temp Pulse Resp B/P (MAP) Pulse Ox O2 Delivery O2 Flow Rate FiO2 11/09/17 11:24 62 19 191/71 96 Room Air 11/09/17 10:56 62 16 184/64 98 11/09/17 10:39 97 Room Air 11/09/17 10:28 62 11/09/17 10:20 36.8 62 18 184/64 97 Room Air Physical Exam GENERAL: Patient is listless, but responds to verbal commands. Does not appear to be in pain. EYES: The conjunctivae are clear. The pupils are round and reactive. EARS, NOSE, MOUTH AND THROAT: The nose is without any evidence of any deformity. Mucous membranes are moist. Tongue is midline NECK: The neck is nontender and supple. RESPIRATORY: Normal respiratory effort is noted. There is no evidence of wheezing rhonchi or rales to auscultation. CARDIOVASCULAR: Regular rate and rhythm noted. There no murmurs rubs or gallops normal S1 normal S2 GASTROINTESTINAL: The abdomen is soft. Bowel sounds are present in all quadrants. Abdomen is nontender. MUSCULOSKELETAL/EXTREMITIES: There is no evidence of gross deformity. Full range of motion is noted in the hips and shoulders. SKIN: There is no obvious evidence of any rash. There are no petechiae, pallor or cyanosis noted. NEUROLOGIC: The patient is oriented to person, but not place or time. Gore Inserter strength diminished in the right hand. Patient has diminished strength in the right lower extremity, but is still able to hold the leg off the bed for 5 seconds. Right sided facial droop noted, which appears to spare the forehead. Medical Decision & Procedures ER Provider Diagnostic Interpretation: Radiology results as stated below per my review and radiologist interpretation: CHEST ONE VIEW PORTABLE CLINICAL HISTORY: Stroke. COMPARISON STUDY: Chest radiograph October 28, 2017. FINDINGS: There is no pneumothorax or pleural effusion. There is no consolidation or evidence for pulmonary edema. Mild left basilar opacity favors atelectasis. A moderate sized hiatal hernia is noted. Cardiomediastinal silhouette is stable. Appearance of the chest is unchanged. Surgical clips within the neck are noted. IMPRESSION: No acute cardiopulmonary findings. No change in appearance of the chest. Electronically signed by: Kunal Staley M.D. 11/09/2017 10:46 AM Dictated Date/Time: 11/09/2017 10:[address] CT DOSE: 537.48 mGy.cm HISTORY: Stroke symptoms. TECHNIQUE: Multiaxial CT images of the head were performed without the use of intravenous contrast. Automated exposure control was utilized for this study. A dose lowering technique was utilized adhering to the principles of ALARA. Comparison: Brain MRI and head CT 10/18/2017. Findings: Mild motion artifact. The paranasal sinuses and mastoid air cells are clear. The calvarium and skull base are intact. There is no mass, hematoma, midline shift, acute infarct. White matter hypodensity is nonspecific but suggestive of microvascular ischemic change. The ventricles and sulci demonstrate mild age-related involutional changes. Old lacunar infarcts seen within the left basal ganglia. Impression: Mild motion artifact. No definite acute intracranial abnormality. Electronically signed by: John Gonzales M.D. 11/09/2017 10:29 AM Dictated Date/Time: 11/09/2017 10:19 AM Laboratory Results 11/09/17 10:30 Red Blood Count 4.03, Mean Corpuscular Volume 91.8, Mean Corpuscular Hemoglobin 31.0, Mean Corpuscular Hemoglobin Concent 33.8, Mean Platelet Volume 10.4, Neutrophils (%) (Auto) 55.9, Lymphocytes (%) (Auto) 23.8, Monocytes (%) (Auto) 11.0, Eosinophils (%) (Auto) 8.7, Basophils (%) (Auto) 0.4, Neutrophils # (Auto ) 2.91, Lymphocytes # (Auto) 1.24, Monocytes # (Auto) 0.57, Eosinophils # (Auto ) 0.45, Basophils # (Auto) 0.02 11/09/17 10:30 Test 11/09/17 10:23 11/09/17 10:30 Bedside Glucose 126 mg/dl (70-90) White Blood Count 5.20 K/uL (4.8-10.8) Red Blood Count 4.03 M/uL (4.2-5.4) Hemoglobin 12.5 g/dL (12.0-16.0) Hematocrit 37.0 % (37-47) Mean Corpuscular Volume 91.8 fL (80-100) Mean Corpuscular Hemoglobin 31.0 pg (25-34) Mean Corpuscular Hemoglobin Concent 33.8 g/dl (32-36) Platelet Count 147 K/uL (130-400) Mean Platelet Volume 10.4 fL (7.4-10.4) Neutrophils (%) (Auto) 55.9 % Lymphocytes (%) (Auto) 23.8 % Monocytes (%) (Auto) 11.0 % Eosinophils (%) (Auto) 8.7 % Basophils (%) (Auto) 0.4 % Neutrophils # (Auto) 2.91 K/uL (1.4-6.5) Lymphocytes # (Auto) 1.24 K/uL (1.2-3.4) Monocytes # (Auto) 0.57 K/uL (0.11-0.59) Eosinophils # (Auto) 0.45 K/uL (0-0.5) Basophils # (Auto) 0.02 K/uL (0-0.2) RDW Standard Deviation 41.7 fL (36.4-46.3) RDW Coefficient of Variation 12.2 % (11.5-14.5) Immature Granulocyte % (Auto) 0.2 % Immature Granulocyte # (Auto) 0.01 K/uL (0.00-0.02) Prothrombin Time 10.1 SECONDS (9.0-12.0) Prothromb Time International Ratio 1.0 (0.9-1.1) Activated Partial Thromboplast Time 25.4 SECONDS (21.0-31.0) Partial Thromboplastin Ratio 1.0 Anion Gap 7.0 mmol/L (3-11) Est Creatinine Clear Calc Drug Dose 20.0 ml/min Estimated GFR () 37.2 Estimated GFR (Non- 32.1 BUN/Creatinine Ratio 21.4 (10-20) Calcium Level 9.0 mg/dl (8.5-10.1) Magnesium Level 2.4 mg/dl (1.8-2.4) Total Creatine Kinase 53 U/L (26-192) Creatine Kinase MB 2.3 ng/ml (0.5-3.6) Creatine Kinase MB Ratio 4.3 (0-3.0) Troponin I < 0.015 ng/ml (0-0.045) Laboratory results per my review. Medications Administered Medications (Trade) Dose Ordered Sig/Cheryle Route Start Time Stop Time Status Last Admin Dose Admin Sodium Chloride 1,000 ml @ 50 mls/hr Q20H IV 11/09/17 10:04 11/09/17 14:27 DC 11/09/17 10:04 50 MLS/HR Miscellaneous Information (Patient'S Height And/Or Weight Needed) 1 ea Q2H N/A 11/09/17 10:30 11/09/17 11:55 DC 11/09/17 10:30 1 EA ECG Per My Interpretation Indication: weakness Rate (beats per minute): 62 Rhythm: sinus rhythm Findings: Q waves (Inferior), no ectopy, other (no acute ST segments) Comparison ECG Date: 10/28/2017 Change: no significant change ED Course 1004: Ordered NSS 1000 ml @ 50 mls/hr IV. 1005: The patient was evaluated in room B2. A complete history and physical examination were performed. 1040: I discussed the patient's case with Dr. Buchanan [facility]. She will evaluate the patient through the tele-stroke. 1049: I discussed giving TPA with Dr. Hendrix through the tele-stroke. 1054: I spoke to the patient's daughter at this time. I discussed the risks and benefits of TPA with her. She is in the parking lot and currently walking in. 1104: I discussed the patient's case with Dr. Dewayne iSu. She recommended adding Plavix and hydrating the patient. 1120: [facility] The patient will be evaluated for further management. 1125: I reevaluated the patient at this time and updated the patient's daughter on her test results. Medical Decision Differential diagnosis: Etiologies such as metabolic, infection, hypo/hyperglycemia, electrolyte abnormalities, cardiac sources, intracerebral event, toxicologic, neurologic, as well as others were entertained. Nursing notes reviewed. Additional history is obtained from the prehospital personnel. Additional history is obtained from the patient's daughter. The patient is an 87-year-old female who presented to the emergency department for an evaluation of acute right-sided weakness and right facial droop. The patient was made a stroke alert prior to arrival after a call was received by the prehospital personnel. The patient was found to have right-sided weakness as well as right facial droop. It is difficult to ascertain what is new given the patient's recent admission to our facility for a stroke. The patient was not a good candidate for TPA but I did discuss her case with the [facility] stroke alert team. She was not a candidate for TPA given her recent ischemic CVA. I discussed patient's laboratory and radiographic studies with her and her family member. I also discussed her case with the on-call [facility] hospitalist group. They have agreed to evaluate the patient in the emergency department for further management and disposition. Medication Reconcilliation Current Medication List: was personally reviewed by me Blood Pressure Screening Patient's blood pressure: Elevated blood pressure Will be further monitored by the hospitalist. Consults Time Called: 1033 Consulting Physician: Dr. Dewayne [facility] Returned Call: 1040 I discussed the patient's case with Dr. Telma Siu. She will evaluate the patient. Additional Consults: Time Called: 1104 Consulted Physician: Dr. Dewayne [facility] Returned Call: 1104 Additional Comments: I discussed the patient's case with Dr. Dewayne [facility]. She recommended adding Plavix and hydrating the patient. Time Called: 1111 Consulted Physician: MARTINA Yates Hospitalist Returned Call: 1120 Additional Comments: I discussed the patient's case with MARTINA Yates Hospitalist. The patient will be evaluated for further management. Impression Primary Impression: CVA (cerebral vascular accident) Scribe Attestation The scribe's documentation has been prepared under my direction and personally reviewed by me in its entirety. I confirm that the note above accurately reflects all work, treatment, procedures, and medical decision making performed by me. Departure Information Dispostion Being Evaluated By Hospitalist Referrals Patricia Juan, C.R.N.P. (PCP) Stroke History Time Last Known Well 0900 Stroke t-PA Criteria Reviewed Does NOT meet criteria for t-PA Reason t-PA Not Given Contraindicated Problem Qualifiers Primary Impression: CVA (cerebral vascular accident) CVA mechanism: unspecified Qualified Codes: I63.9 - Cerebral infarction, unspecified
[2017-11-09] MEDS ORDERED: PHARMACIST DISCHARGE MED REC CONSULT PRN (12:30)
[2017-11-09] MEDS ORDERED: TRAMADOL HCL 50 MG TAB PO PRN (13:00)
--- NOTE | 2017-11-09 13:16 | History and Physical ---
History & Physical Date & Time of Service: Nov 09, 2017 ~ 11:45 Chief Complaint: Stroke Symptoms Primary Care Physician: Patricia Juan, Ana LuisaRYossiNYossiP. History of Present Illness 87-year-old female who presents the ED with strokelike symptoms. Patient was recently admitted to [facility] October 18 - October 19 for subacute CVA. At that time, patient was found unconscious on the floor. Imaging during that admission showed a subacute lacunar infarct. Prior to admission, patient had not been taking other antiplatelets so she was started on a baby aspirin daily as well as a statin. It was also documented the patient had a allergy to Plavix. When discussing this with the daughter today, she thinks her mother may have had some GI bleeding while taking Plavix several years ago. 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 She also had a fall into her right shoulder sometime last year and reports that she will sometimes not use her right arm due to that injury. Per the staff at [facility], this morning after breakfast patient was walking back to her room when she said she did not feel well. They reported that her color was not good and appear vides and the patient was staining she could not stand for much longer. She did not fall or lose consciousness. They did her speech to be garbled. Also, during breakfast there was report that she was not using her right arm as well as she normally would. No other symptoms were reported. History is limited from the patient due to her history of dementia. In the ED, head CT is negative for acute findings. Patient is hypertensive with highest BP reading 212/83. Labs are unremarkable. Patient was given some gentle IVF. 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 Surgical Problems: (1) H/O carotid endarterectomy Status: Chronic (2) History of appendectomy Status: Resolved Family History Noncontributory secondary to patient's advanced age Social History Smoking Status: Unknown if Ever Smoked Alcohol Use: none Housing status: detention Allergies Coded Allergies: Valacyclovir (Unverified Allergy, Severe, ANAPHYLAXIS, 11/09/17) Clopidogrel (Unverified Allergy, Unknown, COUGH, 11/09/17) Amlodipine (Unverified Adverse Reaction, Unknown, COUGH, 11/09/17) Atorvastatin (Unverified Adverse Reaction, Unknown, COUGH, 11/09/17) Hydrochlorothiazide (Unverified Adverse Reaction, Unknown, COUGH, 11/09/17) Lisinopril (Unverified Adverse Reaction, Unknown, COUGH, 11/09/17) Simvastatin (Unverified Adverse Reaction, Unknown, COUGH, 11/09/17) Home Medications Scheduled Aspirin (Aspirin), 81 MG PO QAM Cholecalciferol (Vitamin D3), 1 CAP PO DAILY Cyanocobalamin (Vitamin B12), 1 TAB PO DAILY Enteral Nutrition Formula (Ensure), 1 CAN PO BID Isosorbide Mononitrate Ext Rel (Imdur Ext Rel), 60 MG PO QAM Levothyroxine Sodium (Levothyroxine Sodium), 1 TAB PO DAILY Metoprolol Tartrate (Lopressor) (Lopressor), 50 MG PO BID Mirtazapine Soltab (Remeron Soltab), 7.5 MG PO HS Nitrofurantoin Monohyd Macrocr (Macrobid), 100 MG PO BID Pravastatin Sod (Pravastatin Sodium), 40 MG PO PM Pseudoephedrine-Guaifenesin (Mucinex D), 1 TAB PO Q12 Ranitidine (Zantac), 150 MG PO BID Scheduled PRN Acetaminophen (Tylenol), 1-2 TAB PO Q4H PRN for Pain Acetaminophen (Tylenol Arthritis Ext Rel), 650 MG PO Q8H PRN for Pain Diclofenac Sodium (Topical) (Voltaren 1% Top Gel), 4 GM TD QID PRN for lumbar pain Docosanol (Abreva), 1 APPLN TOP UD PRN for cold sores Furosemide (Lasix), 1 TAB PO DAILY PRN for edema Lidocaine-Prilocaine (Lidocaine/Prilocaine), 1 APPLN TOP UD PRN for Lumbar pain Tramadol (Ultram), 25-50 MG PO Q4H PRN for Pain Review of Systems ROS per HPI, all other systems reviewed and negative Physical Exam Vital Signs Date Time Temp Pulse Resp B/P (MAP) Pulse Ox O2 Delivery O2 Flow Rate FiO2 11/09/17 12:55 64 20 184/79 98 Room Air 11/09/17 12:46 61 20 200/67 96 Room Air 11/09/17 12:35 67 20 212/83 97 Room Air 11/09/17 12:12 61 11/09/17 11:24 62 19 191/71 96 Room Air 11/09/17 10:56 62 16 184/64 98 11/09/17 10:39 97 Room Air 11/09/17 10:28 62 11/09/17 10:20 36.8 62 18 184/64 97 Room Air General Appearance: WD/WN, no apparent distress Head: normocephalic, atraumatic Eyes: normal inspection, PERRL, EOMI, sclerae normal ENT: hearing grossly normal, + pertinent finding (Mucous membranes moist) Neck: supple, no JVD, trachea midline Respiratory/Chest: lungs clear, normal breath sounds, no respiratory distress Cardiovascular: regular rate, rhythm, no edema, normal peripheral pulses Abdomen/GI: normal bowel sounds, non tender, soft, no organomegaly Extremities/Musculoskelatal: normal inspection, no calf tenderness, normal capillary refill Neurologic/Psych: alert, + facial droop (Right, chronic per daughter), + disoriented (To time, place, situation; pleasantly confused and forgetful), + pertinent finding (Full neuro exam difficult to complete with patient's history of dementia however no gross focal deficits are noted with the exception of a chronic right facial droop) Skin: normal color, warm/dry Diagnostics Laboratory Results Results Past 24 Hours Test 11/09/17 10:04 11/09/17 10:23 11/09/17 10:30 Range/Units Bedside Glucose 126 70-90 mg/dl White Blood Count 5.20 4.8-10.8 K/uL Red Blood Count 4.03 4.2-5.4 M/uL Hemoglobin 12.5 12.0-16.0 g/dL Hematocrit 37.0 37-47 % Mean Corpuscular Volume 91.8 80-100 fL Mean Corpuscular Hemoglobin 31.0 25-34 pg Mean Corpuscular Hemoglobin Concent 33.8 32-36 g/dl Platelet Count 147 130-400 K/uL Mean Platelet Volume 10.4 7.4-10.4 fL Neutrophils (%) (Auto) 55.9 % Lymphocytes (%) (Auto) 23.8 % Monocytes (%) (Auto) 11.0 % Eosinophils (%) (Auto) 8.7 % Basophils (%) (Auto) 0.4 % Neutrophils # (Auto) 2.91 1.4-6.5 K/uL Lymphocytes # (Auto) 1.24 1.2-3.4 K/uL Monocytes # (Auto) 0.57 0.11-0.59 K/uL Eosinophils # (Auto) 0.45 0-0.5 K/uL Basophils # (Auto) 0.02 0-0.2 K/uL RDW Standard Deviation 41.7 36.4-46.3 fL RDW Coefficient of Variation 12.2 11.5-14.5 % Immature Granulocyte % (Auto) 0.2 % Immature Granulocyte # (Auto) 0.01 0.00-0.02 K/uL Prothrombin Time 10.1 9.0-12.0 SECONDS Prothromb Time International Ratio 1.0 0.9-1.1 Activated Partial Thromboplast Time 25.4 21.0-31.0 SECONDS Partial Thromboplastin Ratio 1.0 Sodium Level 133 136-145 mmol/L Potassium Level 4.0 3.5-5.1 mmol/L Chloride Level 101 98-107 mmol/L Carbon Dioxide Level 25 21-32 mmol/L Anion Gap 7.0 3-11 mmol/L Blood Urea Nitrogen 31 7-18 mg/dl Creatinine 1.44 0.60-1.20 mg/dl Est Creatinine Clear Calc Drug Dose 20.0 ml/min Estimated GFR () 37.2 Estimated GFR (Non- 32.1 BUN/Creatinine Ratio 21.4 10-20 Random Glucose 109 70-99 mg/dl Calcium Level 9.0 8.5-10.1 mg/dl Magnesium Level 2.4 1.8-2.4 mg/dl Total Creatine Kinase 53 26-192 U/L Creatine Kinase MB 2.3 0.5-3.6 ng/ml Creatine Kinase MB Ratio 4.3 0-3.0 Troponin I < 0.015 0-0.045 ng/ml Diagnostic Radiology HEAD CT IMPRESSION: Mild motion artifact. No definite acute intracranial abnormality. CXR IMPRESSION: No acute cardiopulmonary findings. No change in appearance of the chest. Impression Assessment and Plan STROKE-LIKE SYMPTOMS -Admit to telemetry -Patient presenting with garbled speech and possible right upper extremity weakness, history limited from patient due to history of dementia; recent admission to [facility] 10/18 through 10/19 for subacute CVA - patient was started on aspirin and statin -Chronic right facial droop at baseline per daughter -Speech is improving however still mildly impaired per daughter -Head CT negative for acute findings in the ED -Carotid Dopplers performed during previous admission did not show any significant stenosis -Discussed with daughter, reports that she would not like any further aggressive testing performed -Consider repeat CT tomorrow -Consider addition of Plavix, however patient has a listed allergy the daughter reports may have been GI bleeding from several years ago -will obtain records from prior PCP -Continue aspirin and statin -Permissive hypertension -PT/OT, speech evaluations -Neuro consult HYPERTENSION -Allowing for permissive hypertension in the setting of possible acute CVA -Continue metoprolol and isosorbide for now CKD STAGE IV -Baseline creatinine runs in the mid 1's, noted to be 1.4 today -Continue to monitor renal functions and avoid nephrotoxic agents when able HISTORY OF CAD -No reports of chest pain, EKG without acute ST changes -Continue aspirin, statin, nitrate, beta-eleuterio HYPOTHYROIDISM -Continue levothyroxine DVT PROPHYLAXIS -SQ heparin CODE STATUS -Patient is a DNR as per POLST form as well as per my discussion with the daughter who is the bedside. DISPOSITION -In my clinical judgment this beneficiary meets acute admission criteria, established by [facility], that includes being hospitalized through two midnights. Attending addendum: Patient seen and examined care coordinated with Lexus Breaux [employer] Disease a 87-year-old female with history of dementia recent stroke lacunar infarct approximately 4 weeks back, history of GI bleed, resident at [facility] personal care Sent to ER today for garbled speech worsening of confusion Her symptoms improved after arrival to ED CT head without contrast shows no evidence of acute CVA As per patient's daughter does not want MRI or other imaging studies Patient is very pleasant, oriented to person only chronic right facial droop noted Minimum dysarthria Neurology evaluation appreciated Given patient's prior history of significant GI bleed combination of aspirin and Plavix is not appropriate Recommends to start on full-strength aspirin 325 mg p.o. daily with meals ( patient was started on aspirin 81 mg daily 4 weeks ago for first episode of stroke) Continue statin PT OT speech pathology evaluation Patient is DNR/DNI Plan to return back to [facility] dementia unit/personal care when medically stable Hypertensive urgency SBP elevated to 214 Possible reactive secondary to acute CVA Ordered for IV labetalol 10 mg as needed for systolic blood pressure more than 190 permissive hypertension in the setting of recent CVA to keep systolic between 160-180 to allow cerebral perfusion Patient is continued with outpatient antihypertensive Please refer to further documentation by Lexus MOHAN for discussion of other chronic issues Yary Vargas MD Resuscitation Status VTE Prophylaxis Will order VTE Prophylaxis: Yes
[2017-11-09 14:25] VITALS: BP 224/74; PULSE 66; TEMP 36.3; O2SAT 95; BMI 20.9
[2017-11-09] MEDS: LABETALOL HCL IV 5 MG/ML 20ML IV PRN (15:32)
[2017-11-09] MEDS: HEPARIN SOD 5000 UNIT/0.5 ML CARP SQ SCH ×2 (15:33→21:48)
[2017-11-09 15:35] VITALS: BP 217/72; PULSE 74; TEMP 36.5; O2SAT 96
--- NOTE | 2017-11-09 15:52 | Neurology Consultation ---
Neurology Consultation Date of Consultation: Nov 09, 2017. Attending Physician: Yary Vargas M.D. Primary Care Physician: Patricia Juan, C.R.N.P. Reason for Consultation: stroke History of Present Illness Source: patient, family Sunita is an 87 year old female who presents the ED with strokelike symptoms. She was admitted to [facility] October 18 - October 19 for subacute CVA. At that time, patient was found unconscious on the floor. Imaging during that admission showed a subacute lacunar infarct. She was started on a baby aspirin daily as well as a statin. It was also documented the patient had a allergy to Plavix. When discussing this with the daughter today, she thinks her mother may have had some GI bleeding while taking Plavix several years ago. 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 She also had a fall into her right shoulder sometime last year and reports that she will sometimes not use her right arm due to that injury. She was not feeling well at breakfast and was appearing vides per [facility] staff. She did not fall or lose consciousness but did have some garbled speech. She is hypertensive with highest BP reading 212/83. She admits to not taking her pills and states she does not want to take them. denies CP, SOB, abdominal pain, increased numbness tingling weakness, N, V. Past Medical/Surgical History Medical Problems: (1) Altered mental status Status: Acute (2) CVA (cerebral vascular accident) Status: Chronic (3) Fall at halfway Status: Acute (4) Head contusion Status: Acute (5) Stroke Status: Acute (6) Urinary tract infection Status: Acute (7) UTI (urinary tract infection) Status: Acute (8) Weakness Status: Acute Social History Smoking Status: Never smoker Smokeless Tobacco Use: No Alcohol Use: none Housing Status: assisted living Allergies Coded Allergies: Valacyclovir (Unverified Allergy, Severe, ANAPHYLAXIS, 11/09/17) Clopidogrel (Unverified Allergy, Unknown, COUGH, 11/09/17) Amlodipine (Unverified Adverse Reaction, Unknown, COUGH, 11/09/17) Atorvastatin (Unverified Adverse Reaction, Unknown, COUGH, 11/09/17) Hydrochlorothiazide (Unverified Adverse Reaction, Unknown, COUGH, 11/09/17) Lisinopril (Unverified Adverse Reaction, Unknown, COUGH, 11/09/17) Simvastatin (Unverified Adverse Reaction, Unknown, COUGH, 11/09/17) Current Inpatient Medications Current Inpatient Medications Medications (Trade) Dose Ordered Sig/Cheryle Route Start Time Stop Time Status Last Admin Dose Admin Acetaminophen (Tylenol Tab) 650 mg Q4H PRN PO 11/09/17 12:15 12/09/17 12:14 Ondansetron HCl (Zofran Inj) 4 mg Q6H PRN IV 11/09/17 12:15 12/09/17 12:14 Heparin Sodium (Porcine) (Heparin Sq 5000 Unit/0.5ml) 5,000 unit Q8 SQ 11/09/17 14:00 12/09/17 13:59 11/09/17 15:33 5,000 UNIT Miscellaneous Information (Pharmacist Discharge Med Rec Consult) 1 ea UD PRN N/A 11/09/17 12:30 12/09/17 12:29 Aspirin (Ecotrin Tab) 81 mg QAM PO 11/10/17 09:00 12/10/17 08:59 Enteral Nutritional Formula (Boost) 1 can BID PO 11/09/17 21:00 12/09/17 20:59 Isosorbide Mononitrate (Imdur Ext Rel Tab) 60 mg QAM PO 11/10/17 09:00 12/10/17 08:59 Levothyroxine Sodium (Synthroid Tab) 50 mcg DAILYBB PO 11/10/17 06:00 12/10/17 05:59 Metoprolol Tartrate (Lopressor Tab) 50 mg BID PO 11/09/17 21:00 12/09/17 20:59 Mirtazapine (Remeron Solutab) 7.5 mg HS PO 11/09/17 21:00 12/09/17 20:59 Nitrofurantoin Macrocrystals (Macrobid Cap) 100 mg BID PO 11/09/17 21:00 11/09/17 21:01 Pravastatin Sodium (Pravachol Tab) 40 mg PM PO 11/09/17 21:00 12/09/17 20:59 Ranitidine HCl (zANTac TAB) 150 mg BID PO 11/09/17 21:00 12/09/17 20:59 Tramadol HCl (Ultram Tab) 25 mg Q4H PRN PO 11/09/17 13:00 12/09/17 12:59 Cholecalciferol (Vitamin D Tab) 2,000 inter.unit DAILY PO 11/10/17 09:00 12/10/17 08:59 Cyanocobalamin (Vitamin B-12 Tab) 1,000 mcg DAILY PO 11/10/17 09:00 12/10/17 08:59 Labetalol HCl (Normodyne IV) 10 mg Q8 PRN IV 11/09/17 15:00 12/09/17 14:59 11/09/17 15:32 10 MG Physical Exam Vital Signs (Past 24 Hrs): Date Time Temp Pulse Resp B/P (MAP) Pulse Ox O2 Delivery O2 Flow Rate FiO2 11/09/17 14:25 36.3 66 16 224/74 95 Room Air 11/09/17 13:30 66 20 184/85 98 Room Air 11/09/17 12:55 64 20 184/79 98 Room Air 11/09/17 12:46 61 20 200/67 96 Room Air 11/09/17 12:35 67 20 212/83 97 Room Air 11/09/17 12:12 61 11/09/17 11:24 62 19 191/71 96 Room Air 11/09/17 10:56 62 16 184/64 98 11/09/17 10:39 97 Room Air 11/09/17 10:28 62 11/09/17 10:20 36.8 62 18 184/64 97 Room Air Physical Exam: Constitutional: appearance nourished, healthy and normal, right facial droop Ears, Nose, Mouth and Throat: mucous membranes moist, no injection and skin normal, eyes normal Cardiovascular: normal S-1 and S-2 and regular rate and rhythm Respiratory: course breath sounds Musculoskeletal: no peripheral edema and good distal pulses Skin: no stigmata of neurocutaneous disease noted and normal and intact Eyes: extraocular muscles intact (EOMI) and pupils equal, round and reactive to light (PERRL) NEUROLOGIC EXAMINATION: Mental status: Alert and interactive Oriented to person, only daughter bedside and feels she is at baseline Speech fluent with no evidence of aphasia Cranial Nerves able to lift eyebrows smile with right facial droop Reflexes: Deep tendon reflexes were symmetrical and graded 2/5. Plantar responses were neutral Sensory: GT proprioception absent bilaterally, Coordination: Romberg absent Gait/Stance: Posture lying in bed Motor: unable to raise right shoulder due to previous injury with fall. Strength: biceps triceps hand enrober tender bilaterally 4+/5, hip flex 4+/5, plantar flex ext 5/5 bilaterally Laboratory Results Past 24 Hours: 11/09/17 10:30 Red Blood Count 4.03, Mean Corpuscular Volume 91.8, Mean Corpuscular Hemoglobin 31.0, Mean Corpuscular Hemoglobin Concent 33.8, Mean Platelet Volume 10.4, Neutrophils (%) (Auto) 55.9, Lymphocytes (%) (Auto) 23.8, Monocytes (%) (Auto) 11.0, Eosinophils (%) (Auto) 8.7, Basophils (%) (Auto) 0.4, Neutrophils # (Auto ) 2.91, Lymphocytes # (Auto) 1.24, Monocytes # (Auto) 0.57, Eosinophils # (Auto ) 0.45, Basophils # (Auto) 0.02 11/09/17 10:30 Test 11/09/17 10:23 11/09/17 10:30 Bedside Glucose 126 mg/dl (70-90) White Blood Count 5.20 K/uL (4.8-10.8) Red Blood Count 4.03 M/uL (4.2-5.4) Hemoglobin 12.5 g/dL (12.0-16.0) Hematocrit 37.0 % (37-47) Mean Corpuscular Volume 91.8 fL (80-100) Mean Corpuscular Hemoglobin 31.0 pg (25-34) Mean Corpuscular Hemoglobin Concent 33.8 g/dl (32-36) Platelet Count 147 K/uL (130-400) Mean Platelet Volume 10.4 fL (7.4-10.4) Neutrophils (%) (Auto) 55.9 % Lymphocytes (%) (Auto) 23.8 % Monocytes (%) (Auto) 11.0 % Eosinophils (%) (Auto) 8.7 % Basophils (%) (Auto) 0.4 % Neutrophils # (Auto) 2.91 K/uL (1.4-6.5) Lymphocytes # (Auto) 1.24 K/uL (1.2-3.4) Monocytes # (Auto) 0.57 K/uL (0.11-0.59) Eosinophils # (Auto) 0.45 K/uL (0-0.5) Basophils # (Auto) 0.02 K/uL (0-0.2) RDW Standard Deviation 41.7 fL (36.4-46.3) RDW Coefficient of Variation 12.2 % (11.5-14.5) Immature Granulocyte % (Auto) 0.2 % Immature Granulocyte # (Auto) 0.01 K/uL (0.00-0.02) Prothrombin Time 10.1 SECONDS (9.0-12.0) Prothromb Time International Ratio 1.0 (0.9-1.1) Activated Partial Thromboplast Time 25.4 SECONDS (21.0-31.0) Partial Thromboplastin Ratio 1.0 Anion Gap 7.0 mmol/L (3-11) Est Creatinine Clear Calc Drug Dose 20.0 ml/min Estimated GFR () 37.2 Estimated GFR (Non- 32.1 BUN/Creatinine Ratio 21.4 (10-20) Calcium Level 9.0 mg/dl (8.5-10.1) Magnesium Level 2.4 mg/dl (1.8-2.4) Total Creatine Kinase 53 U/L (26-192) Creatine Kinase MB 2.3 ng/ml (0.5-3.6) Creatine Kinase MB Ratio 4.3 (0-3.0) Troponin I < 0.015 ng/ml (0-0.045) Imaging CT head- Mild motion artifact. No definite acute intracranial abnormality. Impression 87 year old female with dementia, HTN, GERD, hypothyroid, depression, CVA after carotid endarterectomy Plan 1. double aspirin therapy from 81 mg and 325 mg daily 2. continue statin and HTN medication - she is refusing a lot of medication may need to decide on which are essential 3. would limit sending to ED if possible will just cause more confusion 4. no need further imaging unless she would allow an MRI which she is refusing 5. PT/OT may help with discharge 6. ok to discharge when medically stable I have seen and discussed above patient with Dr Dileep Gonzalez, neurology Reviewed and discussed the above may well have had another tia or small vessel cva but is refusing more imaging studies and many meds exam shows little other than the right upper motor neuron facial weakness and according to her daughter she is at baseline now save for some dysarthria the plavix issue remains unclear as to allergy or intolerance and at this point would only increase asa to 325 and observe for a full 24 hours post event and then if stable discharge back to her residence Dileep Gonzalez MD
[2017-11-09 16:22] VITALS: BP 187/76; PULSE 67
[2017-11-09 17:14] VITALS: O2SAT 96
[2017-11-09 19:15] VITALS: BP 154/76; PULSE 81; TEMP 36.7; O2SAT 90
[2017-11-09] MEDS ORDERED: MIRTAZAPINE SOLTAB 15 MG PO SCH (21:00)
[2017-11-09] MEDS ORDERED: PRAVASTATIN SOD 40 MG TAB PO SCH (21:00)
[2017-11-09] MEDS ORDERED: NITROFURANTOIN MONOHYDRATE 100 MG CAP PO SCH (21:00)
[2017-11-09] MEDS: METOPROLOL TARTRATE 50 MG TAB PO SCH (21:45)
[2017-11-09] MEDS: BOOST VANILLA OR BOOST GLUCOSE CONTROL CHOCOLATE PO SCH (21:45)
[2017-11-09] MEDS: RANITIDINE HCL 150 MG TAB PO SCH (21:46)
[2017-11-09 23:34] VITALS: BP 181/45; PULSE 72; TEMP 36.7; O2SAT 96
[2017-11-10] MEDS: LABETALOL HCL IV 5 MG/ML 20ML IV PRN (00:01)
[2017-11-10 01:29] VITALS: BP 166/89; PULSE 68
[2017-11-10 03:30] VITALS: BP 180/80; PULSE 68; TEMP 36.5; O2SAT 95
[2017-11-10] MEDS ORDERED: LEVOTHYROXINE 50 MCG TAB PO SCH (06:00)
[2017-11-10 07:06] LABS: BASO % 0.3 %; BASO ABS # 0.02 K/uL (0-0.2); EOS % 6.7 %; HEMATOCRIT 33.1 % (37-47); HEMOGLOBIN 11.3 g/dL (12.0-16.0); IG# 0.01 K/uL (0.00-0.02); LYMPH % 28.9 %; LYMPH ABS # 1.72 K/uL (1.2-3.4); MEAN CELL VOLUME 89.2 fL (80-100); MEAN CORPUSCULAR HEMOGLOBIN 30.5 pg (25-34); MEAN CORPUSCULAR HGB CONC 34.1 g/dl (32-36); MEAN PLATELET VOLUME 10.2 fL (7.4-10.4); MONO % 10.3 %; MONO ABS # 0.61 K/uL (0.11-0.59); NEUT % 53.6 %; NEUT ABS # 3.19 K/uL (1.4-6.5); PLATELET COUNT 139 K/uL (130-400); RED CELL DISTRIBUTION WIDTH CV 12.2 % (11.5-14.5); RED CELL DISTRIBUTION WIDTH SD 39.8 fL (36.4-46.3); WHITE BLOOD COUNT 5.95 K/uL (4.8-10.8)
[2017-11-10 07:23] VITALS: BP 181/70; PULSE 57; TEMP 36.4; O2SAT 94
[2017-11-10 07:43] LABS: CALCIUM 8.4 mg/dl (8.5-10.1); CREATININE 1.34 mg/dl (0.60-1.20); POTASSIUM 4.4 mmol/L (3.5-5.1)
[2017-11-10 08:00] VITALS: O2SAT 94
[2017-11-10] MEDS: METOPROLOL TARTRATE 50 MG TAB PO SCH (08:32)
[2017-11-10] MEDS: RANITIDINE HCL 150 MG TAB PO SCH (08:32)
[2017-11-10] MEDS: HEPARIN SOD 5000 UNIT/0.5 ML CARP SQ SCH ×2 (08:33→14:00)
[2017-11-10] MEDS ORDERED: ASPIRIN/ALUM/MAGNES/CAL CARB 325 MG TAB PO SCH (09:00)
[2017-11-10] MEDS ORDERED: ASPIRIN 81 MG ECTAB PO SCH (09:00)
[2017-11-10] MEDS ORDERED: CHOLECALCIFEROL 1000 INTER.UNIT TAB PO SCH (09:00)
[2017-11-10] MEDS: BOOST VANILLA OR BOOST GLUCOSE CONTROL CHOCOLATE PO SCH (09:00)
[2017-11-10] MEDS ORDERED: ISOSORBIDE MONONITRATE 60 MG TABCR PO SCH (09:00)
[2017-11-10] MEDS ORDERED: CYANOCOBALAMIN 500 MCG TAB (VIT B-12) PO SCH (09:00)
--- NOTE | 2017-11-10 10:46 | Progress Note ---
Subjective Date of Service: Nov 10, 2017. Subjective Pt evaluation today including: conversation w/ patient, conversation w/ family , physical exam, lab review, review of studies, review of inpatient medication list Saw/examined the patient in room 240-1 Daughter is at bedside Patient is pleasantly demented; does not have any complaints Daughter states patient does better in a familiar environment like back at [facility] good PO intake chronic R facial droop Problem List Medical Problems: (1) Altered mental status Status: Acute (2) CVA (cerebral vascular accident) Status: Chronic (3) Fall at senior living Status: Acute (4) Head contusion Status: Acute (5) Stroke Status: Acute (6) Urinary tract infection Status: Acute (7) UTI (urinary tract infection) Status: Acute (8) Weakness Status: Acute Review of Systems Cannot obtain due to patient's mental status Medications Current Inpatient Medications Medications (Trade) Dose Ordered Sig/Cheryle Route Start Time Stop Time Status Last Admin Dose Admin Acetaminophen (Tylenol Tab) 650 mg Q4H PRN PO 11/09/17 12:15 12/09/17 12:14 Ondansetron HCl (Zofran Inj) 4 mg Q6H PRN IV 11/09/17 12:15 12/09/17 12:14 Heparin Sodium (Porcine) (Heparin Sq 5000 Unit/0.5ml) 5,000 unit Q8 SQ 11/09/17 14:00 12/09/17 13:59 11/10/17 08:33 5,000 UNIT Miscellaneous Information (Pharmacist Discharge Med Rec Consult) 1 ea UD PRN N/A 11/09/17 12:30 12/09/17 12:29 Enteral Nutritional Formula (Boost) 1 can BID PO 11/09/17 21:00 12/09/17 20:59 11/09/17 21:45 1 CAN Isosorbide Mononitrate (Imdur Ext Rel Tab) 60 mg QAM PO 11/10/17 09:00 12/10/17 08:59 11/10/17 08:31 60 MG Levothyroxine Sodium (Synthroid Tab) 50 mcg DAILYBB PO 11/10/17 06:00 12/10/17 05:59 11/10/17 08:32 50 MCG Metoprolol Tartrate (Lopressor Tab) 50 mg BID PO 11/09/17 21:00 12/09/17 20:59 7/17/18 08:32 50 MG Mirtazapine (Remeron Solutab) 7.5 mg HS PO 11/09/17 21:00 12/09/17 20:59 11/09/17 21:46 7.5 MG Pravastatin Sodium (Pravachol Tab) 40 mg PM PO 11/09/17 21:00 12/09/17 20:59 11/09/17 21:45 40 MG Ranitidine HCl (zANTac TAB) 150 mg BID PO 11/09/17 21:00 12/09/17 20:59 11/10/17 08:32 150 MG Tramadol HCl (Ultram Tab) 25 mg Q4H PRN PO 11/09/17 13:00 12/09/17 12:59 Cholecalciferol (Vitamin D Tab) 2,000 inter.unit DAILY PO 11/10/17 09:00 12/10/17 08:59 11/10/17 08:31 2,000 INTER.UNIT Cyanocobalamin (Vitamin B-12 Tab) 1,000 mcg DAILY PO 11/10/17 09:00 12/10/17 08:59 11/10/17 08:32 1,000 MCG Labetalol HCl (Normodyne IV) 10 mg Q8 PRN IV 11/09/17 15:00 12/09/17 14:59 11/10/17 00:01 10 MG Aspirin/Aluminum/ Magnesium/Ca Carb (Ascriptin Tab) 325 mg DAILY PO 11/10/17 09:00 12/10/17 08:59 11/10/17 08:31 325 MG Objective Vital Signs Date Time Temp Pulse Resp B/P (MAP) Pulse Ox O2 Delivery O2 Flow Rate FiO2 11/10/17 08:00 94 Room Air 11/10/17 07:23 36.4 57 18 181/70 (107) 94 Room Air 11/10/17 03:30 36.5 68 18 180/80 (113) 95 Room Air 11/10/17 01:29 68 166/89 (114) 11/10/17 00:02 Room Air 11/09/17 23:34 36.7 72 20 181/45 (90) 96 Room Air 11/09/17 19:15 36.7 81 20 154/76 (102) 90 Room Air 11/09/17 17:14 96 Room Air 11/09/17 16:22 67 187/76 (113) 11/09/17 15:35 36.5 74 217/72 (120) 96 Room Air 11/09/17 14:25 36.3 66 16 224/74 95 Room Air 11/09/17 13:30 66 20 184/85 98 Room Air 11/09/17 12:55 64 20 184/79 98 Room Air 11/09/17 12:46 61 20 200/67 96 Room Air 11/09/17 12:35 67 20 212/83 97 Room Air 11/09/17 12:12 61 11/09/17 11:24 62 19 191/71 96 Room Air 11/09/17 10:56 62 16 184/64 98 11/09/17 10:39 97 Room Air 11/09/17 10:28 62 11/09/17 10:20 36.8 62 18 184/64 97 Room Air Physical Exam General Appearance: no apparent distress, + pertinent finding (+underlying dementia) Respiratory/Chest: lungs clear, normal breath sounds, no respiratory distress, no accessory muscle use Cardiovascular: regular rate, rhythm, no edema, no murmur Extremities: normal inspection, no pedal edema Neurologic/Psychiatric: no motor/sensory deficits, alert Laboratory Results Last 24 Hours Test 11/09/17 10:23 11/09/17 10:30 11/09/17 23:30 11/10/17 06:41 Bedside Glucose 126 mg/dl White Blood Count 5.20 K/uL 5.95 K/uL Red Blood Count 4.03 M/uL 3.71 M/uL Hemoglobin 12.5 g/dL 11.3 g/dL Hematocrit 37.0 % 33.1 % Mean Corpuscular Volume 91.8 fL 89.2 fL Mean Corpuscular Hemoglobin 31.0 pg 30.5 pg Mean Corpuscular Hemoglobin Concent 33.8 g/dl 34.1 g/dl Platelet Count 147 K/uL 139 K/uL Mean Platelet Volume 10.4 fL 10.2 fL Neutrophils (%) (Auto) 55.9 % 53.6 % Lymphocytes (%) (Auto) 23.8 % 28.9 % Monocytes (%) (Auto) 11.0 % 10.3 % Eosinophils (%) (Auto) 8.7 % 6.7 % Basophils (%) (Auto) 0.4 % 0.3 % Neutrophils # (Auto) 2.91 K/uL 3.19 K/uL Lymphocytes # (Auto) 1.24 K/uL 1.72 K/uL Monocytes # (Auto) 0.57 K/uL 0.61 K/uL Eosinophils # (Auto) 0.45 K/uL 0.40 K/uL Basophils # (Auto) 0.02 K/uL 0.02 K/uL RDW Standard Deviation 41.7 fL 39.8 fL RDW Coefficient of Variation 12.2 % 12.2 % Immature Granulocyte % (Auto) 0.2 % 0.2 % Immature Granulocyte # (Auto) 0.01 K/uL 0.01 K/uL Prothrombin Time 10.1 SECONDS Prothromb Time International Ratio 1.0 Activated Partial Thromboplast Time 25.4 SECONDS Partial Thromboplastin Ratio 1.0 Sodium Level 133 mmol/L 135 mmol/L Potassium Level 4.0 mmol/L 4.4 mmol/L Chloride Level 101 mmol/L 105 mmol/L Carbon Dioxide Level 25 mmol/L 23 mmol/L Anion Gap 7.0 mmol/L 7.0 mmol/L Blood Urea Nitrogen 31 mg/dl 28 mg/dl Creatinine 1.44 mg/dl 1.34 mg/dl Est Creatinine Clear Calc Drug Dose 20.0 ml/min 21.5 ml/min Estimated GFR () 37.2 40.6 Estimated GFR (Non- 32.1 35.0 BUN/Creatinine Ratio 21.4 21.0 Random Glucose 109 mg/dl 94 mg/dl Calcium Level 9.0 mg/dl 8.4 mg/dl Magnesium Level 2.4 mg/dl Total Creatine Kinase 53 U/L Creatine Kinase MB 2.3 ng/ml Creatine Kinase MB Ratio 4.3 Troponin I < 0.015 ng/ml Urine Color YELLOW Urine Appearance CLEAR Urine pH 6.5 Urine Specific [place] 1.013 Urine Protein 2+ Urine Glucose (UA) NEG Urine Ketones NEG Urine Occult Blood NEG Urine Nitrite NEG Urine Bilirubin NEG Urine Urobilinogen NEG Urine Leukocyte Esterase NEG Urine WBC (Auto) 1-5 /hpf Urine RBC (Auto) 0-4 /hpf Urine Hyaline Casts (Auto) 1-5 /lpf Urine Epithelial Cells (Auto) >30 /lpf Urine Bacteria (Auto) 1+ Assessment and Plan This is an 87 year old female with a past medical history of underlying dementia , hx. of CVA, HTN, hypothyroidism, CKD stage IV, depression, CAD - presents with stroke-like symptoms Stroke-Like Symptoms Hx. of CVA - patient with hx. of subacute lacunar infarct - presented from [facility] secondary to slurred speech, presyncope - Head CT - no acute issues - patient seems back to baseline as per daughter - aspirin increased to 325mg - Plavix allergy noted - continue statin - no extraordinary measures, no MRI at this time warranted HTN - continue metoprolol and Imdur - SBP currently in the 180s, will need tighter control in the next day or so prior to discharge CKD stage IV - creatinine at baseline Hx. of CAD - Continue aspirin, statin, nitrate, beta-eleuterio - does not appear to be an acute issue Hypothyroidism - continue Synthroid DVT ppx - subq heparin DNR/DNI
[2017-11-10 11:04] VITALS: BP 135/70; PULSE 56
[2017-11-10 11:46] VITALS: Ht 157.5 cm; Wt 47.8 kg
[2017-11-10] MEDS ORDERED: ASPI325T60 PO (12:48)
--- NOTE | 2017-11-10 12:50 | Discharge Instructions ---
Discharge Instructions Date of Service Nov 10, 2017. Admission Reason for Admission: Stroke-Like Symptoms Discharge Discharge Diagnosis / Problem: Stroke-Like Symptoms Discharge Goals Goal(s): Decrease discomfort, Improve function, Diagnostic testing, Therapeutic intervention Activity Recommendations Activity Limitations: resume your previous activity . Instructions / Follow-Up Instructions / Follow-Up Risk Factors for Stroke: You can reduce your chances of stroke by working with your medical provider to adopt a healthy lifestyle. Some specific ways to lower your chance of stroke are: * If you are a smoker, now is the time to stop smoking cigarettes * If you are diabetic, improve the control of your blood sugars * Avoid excessive amounts of alcohol * Control high blood pressure * Lose weight if you are overweight * Be sure to lead an active lifestyle * Eat a healthy diet low in salt, cholesterol and fat You should know about other risk factors for stroke that you are unable to control. These include: * Age 55 years or older * Male gender * Certain racial groups: , or / * Family History of Stroke, Mini stroke or Heart Attack * Sickle Cell Disease Follow Up: It is important for you to keep your follow up appointments with your medical provider. Current Hospital Diet Patient's current hospital diet: AHA Diet (Heart Healthy) Discharge Diet Recommended Diet: AHA Diet (Heart Healthy) Pending Studies Studies pending at discharge: no Laboratory Results Hemoglobin A1c Test 10/18/17 07:30 Range/Units Estimated Average Glucose 126 mg/dl Hemoglobin A1c 6.0 H 4.5-5.6 % Lipid Panel Test 10/19/17 05:49 Range/Units Triglycerides Level 337 H 0-150 mg/dl Cholesterol Level 272 H 0-200 mg/dl HDL Cholesterol 40 mg/dl Cholesterol/HDL Ratio 6.8 LDL Cholesterol, Calculated 165 mg/dl Medical Emergencies . Who to Call and When: Medical Emergencies: Call 911 immediately if you experience any of the following warning signs and symptoms of Stroke: * Sudden numbness or weakness of the face, arm or leg, especially on one side of the body * Sudden confusion, trouble speaking or understanding * Sudden trouble seeing in one or both eyes * Sudden trouble walking, dizziness, loss of balance or coordination * Sudden severe headache with no cause Do not delay calling 911 if you experience any warning signs or symptoms of a stroke. Delay in seeking medical attention may affect what treatments can be given to you. . Non-Emergent Contact Non-Emergency issues call your: Primary Care Provider, Neurologist . . "Provider Documentation" section prepared by Sonia Caldera. . Stroke Core Measures Reason no t-PA for Stroke: Treatment not indicated Reason no antithrom by day 2: Treatment provided - N/A Reason no antithrom at D/C: Treatment provided - N/A Reason no statin at D/C: Treatment provided - N/A Reason no anticoag w/a fib: Treatment not indicated
--- NOTE | 2017-11-10 12:52 | Discharge Summary ---
Discharge Summary Date of Service Nov 10, 2017. Discharge Summary Admission Date: Nov 09, 2017 at 12:07 Discharge Date: Nov 10, 2017 Discharge Disposition: assisted facility Principal Diagnosis: Stroke-Like Symptoms Hx. of CVA HTN CKD stage IV Hx. of CAD Hypothyroidism Medication Reconciliation New Medications: Aspirin Buffered (Danny Carb-Mag (Tri-Buffered Aspirin) 1 Tab Tab 325 MG PO DAILY for 30 Days, #30 TAB Continued Medications: Acetaminophen (Tylenol) 325 Mg Tab 1-2 TAB PO Q4H PRN for Pain, TAB Acetaminophen (Tylenol Arthritis Ext Rel) 650 Mg Cplt 650 MG PO Q8H PRN for Pain, CAP Cholecalciferol (Vitamin D3) 2,000 Unit Cap 1 CAP PO DAILY for 30 Days, #30 CAP 3 Refills Cyanocobalamin (Vitamin B12) 1,000 Mcg Tab 1 TAB PO DAILY Diclofenac Sodium (Topical) (Voltaren 1% Top Gel) 1 % Gel 4 GM TD QID PRN for lumbar pain apply to sacroiliac area Docosanol (Abreva) 10 % Cre 1 APPLN TOP UD PRN for cold sores Enteral Nutrition Formula (Ensure) Liq 1 CAN PO BID Furosemide (Lasix) 20 Mg Tab 1 TAB PO DAILY PRN for edema for 90 Days, #90 TAB 1 Refill Isosorbide Mononitrate Ext Rel (Imdur Ext Rel) 60 Mg Ertab 60 MG PO QAM, TAB Levothyroxine Sodium (Levothyroxine Sodium) 50 Mcg Tab 1 TAB PO DAILY, TAB Lidocaine-Prilocaine (Lidocaine/Prilocaine) 1 Cre Cre 1 APPLN TOP UD PRN for Lumbar pain, #30 GM 1 Refill apply after Voltaren Metoprolol Tartrate (Lopressor) (Lopressor) 50 Mg Tab 50 MG PO BID, TAB Mirtazapine Soltab (Remeron Soltab) 15 Mg Soltab 7.5 MG PO HS, TAB Pravastatin Sod (Pravastatin Sodium) 40 Mg Tab 40 MG PO PM, #30 TAB Pseudoephedrine-Guaifenesin (Mucinex D) 1 Tab Tab 1 TAB PO Q12 for 10 Days, #20 TAB FOR CONGESTION Ranitidine (Zantac) 150 Mg Tab 150 MG PO BID, TAB Tramadol (Ultram) 50 Mg Tab 25-50 MG PO Q4H PRN for Pain, TAB Discontinued Medications: Aspirin (Aspirin) 81 Mg Tab 81 MG PO QAM, #30 TAB Nitrofurantoin Monohyd Macrocr (Macrobid) 100 Mg Cap 100 MG PO BID for UTI, #6 CAP last dose 11/09 Admission Information HPI (per Admitting provider): 87-year-old female who presents the ED with strokelike symptoms. Patient was recently admitted to [facility] October 18 - October 19 for subacute CVA. At that time, patient was found unconscious on the floor. Imaging during that admission showed a subacute lacunar infarct. Prior to admission, patient had not been taking other antiplatelets so she was started on a baby aspirin daily as well as a statin. It was also documented the patient had a allergy to Plavix. When discussing this with the daughter today, she thinks her mother may have had some GI bleeding while taking Plavix several years ago. 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 She also had a fall into her right shoulder sometime last year and reports that she will sometimes not use her right arm due to that injury. Per the staff at [facility], this morning after breakfast patient was walking back to her room when she said she did not feel well. They reported that her color was not good and appear vides and the patient was staining she could not stand for much longer. She did not fall or lose consciousness. They did her speech to be garbled. Also, during breakfast there was report that she was not using her right arm as well as she normally would. No other symptoms were reported. History is limited from the patient due to her history of dementia. In the ED, head CT is negative for acute findings. Patient is hypertensive with highest BP reading 212/83. Labs are unremarkable. Patient was given some gentle IVF. Physical Exam (per Admitting): General Appearance: WD/WN, no apparent distress Head: normocephalic, atraumatic Eyes: normal inspection, PERRL, EOMI, sclerae normal ENT: hearing grossly normal, + pertinent finding (Mucous membranes moist) Neck: supple, no JVD, trachea midline Respiratory/Chest: lungs clear, normal breath sounds, no respiratory distress Cardiovascular: regular rate, rhythm, no edema, normal peripheral pulses Abdomen/GI: normal bowel sounds, non tender, soft, no organomegaly Extremities/Musculoskelatal: normal inspection, no calf tenderness, normal capillary refill Neurologic/Psych: alert, + facial droop (Right, chronic per daughter), + disoriented (To time, place, situation; pleasantly confused and forgetful), + pertinent finding (Full neuro exam difficult to complete with patient's history of dementia however no gross focal deficits are noted with the exception of a chronic right facial droop) Skin: normal color, warm/dry Hospital Course This is an 87 year old female with a past medical history of underlying dementia , hx. of CVA, HTN, hypothyroidism, CKD stage IV, depression, CAD - presents with stroke-like symptoms Stroke-Like Symptoms Hx. of CVA - patient with hx. of subacute lacunar infarct - presented from [facility] secondary to slurred speech, presyncope - Head CT - no acute issues - patient seems back to baseline as per daughter - aspirin increased to 325mg - Plavix allergy noted - continue statin - no extraordinary measures, no MRI at this time warranted HTN - continue metoprolol and Imdur - SBP currently in the 180s, will need tighter control in the next day or so prior to discharge CKD stage IV - creatinine at baseline Hx. of CAD - Continue aspirin, statin, nitrate, beta-eleuterio - does not appear to be an acute issue Hypothyroidism - continue Synthroid DVT ppx - subq heparin DNR/DNI Total time spent on discharge = 40 minutes This includes examination of the patient, discharge planning, medication reconciliation, and communication with other providers. Discharge Instructions Instructions / Follow-Up Risk Factors for Stroke: You can reduce your chances of stroke by working with your medical provider to adopt a healthy lifestyle. Some specific ways to lower your chance of stroke are: * If you are a smoker, now is the time to stop smoking cigarettes * If you are diabetic, improve the control of your blood sugars * Avoid excessive amounts of alcohol * Control high blood pressure * Lose weight if you are overweight * Be sure to lead an active lifestyle * Eat a healthy diet low in salt, cholesterol and fat You should know about other risk factors for stroke that you are unable to control. These include: * Age 55 years or older * Male gender * Certain racial groups: , or / * Family History of Stroke, Mini stroke or Heart Attack * Sickle Cell Disease Follow Up: It is important for you to keep your follow up appointments with your medical provider.
[2017-11-10 14:11] VITALS: BP 135/70; PULSE 56; TEMP 36.4; O2SAT 94
--- NOTE | 2017-11-11 11:22 | EDITING REQUIRED CODING QUERY ---
CODING QUERY To promote full compliance with coding requirements relating to patient care, provider participation is requested in all cases of wardsperson uncertainty. Please assist us with the question(s) below: Coding Question(s): The Neurology Consultation documents that the patient may well have had another TIA or small vessel CVA but is refusing more imaging studies and the Discharge Summary documents Stroke-Like Symptoms. Please clarify below, in your clinical opinion. ( ) Stroke-Like Symptoms - CVA and TIA are Ruled-Out ( x ) Stroke-Like Symptoms with Possible CVA ( x ) Stroke-Like Symptoms with Possible TIA Physician's Response(s): Thank you Angelic Walsh Principal Diagnosis: "_that condition established after study, to be chiefly responsible for occasioning the admission of the patient to the hospital for care." Co-Existing Principal Diagnosis: "_when two or more diagnoses equally meet the criteria for principal diagnosis as determined by the circumstances of admission, diagnostic work up, and/or therapy provided, and the Alphabetic Index, Tabular List, or another coding guideline does not provide sequencing direction, any one of the diagnoses may be sequenced first." "When the physician has documented what appears to be a current diagnosis in the body of the record, but has not included the diagnosis in the final diagnostic statement, the physician should be asked whether the diagnosis should be added." (Source [facility]oding [facility] 2 QTR90. p3-4)
== END 2017-11-10 15:00 | disposition home or self-care (01) | DRG 65 ==
LOC: C.EDB 10:12 → C.2T 12:07 → ENRESERV 12:43
PROVIDERS: ADMIT Hospitalist; ATTEND Family Medicine
DX: I63.9 Cerebral infarction, unspecified (principal); G45.9 Transient cerebral ischemic attack, unspecified; N18.4 Chronic kidney disease, stage 4 (severe); R47.1 Dysarthria and anarthria; R29.707 NIHSS score 7; I16.0 Hypertensive urgency; I13.10 Hypertensive heart and chronic kidney disease without heart failure, with stage 1 through stage 4 chronic kidney disease, or unspecified chronic kidney disease; I25.10 Atherosclerotic heart disease of native coronary artery without angina pectoris; E03.9 Hypothyroidism, unspecified; I25.2 Old myocardial infarction; K21.9 Gastro-esophageal reflux disease without esophagitis; F32.9 Major depressive disorder, single episode, unspecified; F03.90 Unspecified dementia, unspecified severity, without behavioral disturbance, psychotic disturbance, mood disturbance, and anxiety; Z51.81 Encounter for therapeutic drug level monitoring; Z79.899 Other long term (current) drug therapy; Z79.82 Long term (current) use of aspirin; Z66 Do not resuscitate; Z86.73 Personal history of transient ischemic attack (TIA), and cerebral infarction without residual deficits; Z98.890 Other specified postprocedural states; Z88.8 Allergy status to other drugs, medicaments and biological substances; Z88.3 Allergy status to other anti-infective agents; Z85.3 Personal history of malignant neoplasm of breast